=== PATIENT | female | born 1950 | race Caucasian/White ===

== ENCOUNTER 2017-02-06 02:20 | Observation (INO) | payer OTHER, MEDICAID ==
[~2017-02-06] VITALS: Ht 160 cm; Wt 81.6 kg
[2017-02-06 04:08] LABS: Basophils # (auto) 0.1 uL; Basophils % (auto) 0.7 % (0.0-2.0); Eosinophils # (auto) 0.3 uL; Eosinophils % (auto) 2.7 % (0.0-7.0); Hematocrit 42.1 % (36.0-46.0); Hemoglobin 14.3 g/dL (12.2-16.2); Lymphocytes # (auto) 2.8 uL; Lymphocytes % (auto) 28.5 % (10.0-50.0); Mean Corpuscular Hemoglobin 30.3 pg (28.0-32.0); Mean Corpuscular Hgb Conc. 33.9 g/dL (32.0-36.0); Mean Corpuscular Volume 89.4 fL (80.0-100.0); Mean Platelet Volume 8.9 fL (7.4-10.4); Monocytes # (auto) 0.7 uL; Monocytes % (auto) 6.9 % (0.0-12.0); Neutrophils # (auto) 5.9 uL; Neutrophils % (auto) 61.2 % (37.0-80.0); Platelet Count (auto) 433 10^3/uL (140-450); Red Cell Distribution Width 12.7 % (11.6-16.0); White Blood Cell 9.7 10^3/uL (4.4-10.8)
[2017-02-06 04:55] LABS: Albumin 3.8 g/dL (3.4-5.0); Alkaline Phosphatase 67 U/L (45-117); Anion Gap 8 (5-15); Aspartate Aminotransferase 11 U/L (15-37); BUN/Creatinine Ratio 18.2; Bilirubin, Total 0.4 mg/dL (0.2-1.0); Blood Urea Nitrogen 12 mg/dL (7-18); Calcium 8.8 mg/dL (8.5-10.1); Carbon Dioxide 28 mmol/L (21-32); Chloride 106 mmol/L (98-107); GFR African American 115 mL/min; GFR Non-African American 95 mL/min; Glucose 214 mg/dL (74-106); Sodium 142 mmol/L (136-145)
[2017-02-06 06:41] LABS: Urine Bilirubin Negative (Negative); Urine Color Yellow (Yellow); Urine Glucose TRACE mg/dL (Normal); Urine Ketone Negative (Negative); Urine Nitrite Negative (Negative); Urine RBC 4 /hpf (0 - 4); Urine Squamous Epithelial Cell MOD /hpf (<5); Urine Urobilinogen Normal (Negative)
[2017-02-06 06:46] LABS: Urine Blood 1+ /uL (Negative)
[2017-02-06] MEDS ORDERED: SODIUM CHLORIDE 0.9% 1,000 ML IV ONE (07:16)
[2017-02-06] MEDS ORDERED: ASPirin 81 mg TAB PO ONE (07:30)
[2017-02-06] MEDS ORDERED: cefTRIAXone 1GM/50ML D5W 50 ML IV ONE (07:45)
[2017-02-06 07:56] LABS: INR 0.94 (0.9-1.15); Partial Thromboplastin Time 24.7 sec (22.64-33.71); Prothrombin Time 10.2 sec (9.37-12.3)
[2017-02-06 09:45] VITALS: BP 125/70
== END 2017-02-06 10:34 | disposition home or self-care (01) | DRG 392 ==
LOC: ER 02:20 → OVERFLOW 07:17 → ER 10:34
PROVIDERS: ADMIT Emergency Medicine; ATTEND Emergency Medicine
DX: R10.13 Epigastric pain (principal); N39.0 Urinary tract infection, site not specified; E11.65 Type 2 diabetes mellitus with hyperglycemia; E03.9 Hypothyroidism, unspecified; F41.9 Anxiety disorder, unspecified; Z79.82 Long term (current) use of aspirin
CPT/HCPCS: 36415; 71020; 80053; 81001; 83735; 84443; 84484; 85025; 85610; 85730; 96361; 96365; 99285; G0378; J0696; J7030

== ENCOUNTER 2019-08-04 15:20 | Emergency (ER) | payer OTHER ==
[~2019-08-04] VITALS: Ht 157.5 cm; Wt 90.7 kg
[2019-08-04 15:33] VITALS: BP 167/71
[2019-08-04 15:55] LABS: Urine Bacteria FEW /hpf (None Seen); Urine Blood Negative /uL (Negative); Urine Specific Gravity 1.017 (1.001-1.035); Urine WBC 14 /hpf (0 - 5)
[2019-08-04 16:13] LABS: Basophils # (auto) 0.1 uL; Eosinophils # (auto) 0.3 uL; Eosinophils % (auto) 2.9 % (0.0-7.0); Hematocrit 38.2 % (36.0-46.0); Hemoglobin 13.2 g/dL (12.2-16.2); Lymphocytes % (auto) 30.5 % (10.0-50.0); Mean Corpuscular Hgb Conc. 34.4 g/dL (32.0-36.0); Mean Corpuscular Volume 89.9 fL (80.0-100.0); Monocytes # (auto) 0.5 uL; Monocytes % (auto) 5.5 % (0.0-12.0); Neutrophils % (auto) 60.1 % (37.0-80.0); Nucleated Red Blood Cells % 0.2 %; Platelet Count (auto) 389 10^3/uL (140-450); Red Blood Cells 4.26 10^6/uL (4.0-5.20); Red Cell Distribution Width 13.2 % (11.8-14.3)
[2019-08-04 16:29] LABS: Alanine Aminotransferase 24 U/L (13-56); Albumin 3.8 g/dL (3.4-5.0); Anion Gap 6 (5-15); Blood Urea Nitrogen 14 mg/dL (7-18); Calcium 8.8 mg/dL (8.5-10.1); Carbon Dioxide 26 mmol/L (21-32); Chloride 109 mmol/L (98-107); Glucose 202 mg/dL (74-106); Magnesium 2.1 mg/dL (1.6-2.6); Potassium 3.9 mmol/L (3.5-5.1); Sodium 141 mmol/L (136-145)
[2019-08-04 16:34] LABS: Alkaline Phosphatase 74 U/L (45-117); Aspartate Aminotransferase 17 U/L (15-37); BUN/Creatinine Ratio 18.4; Bilirubin, Total 0.3 mg/dL (0.2-1.0); GFR African American 97 mL/min; GFR Non-African American 80 mL/min
== END 2019-08-04 21:32 | disposition left against medical advice (07) ==
LOC: MERGE 15:34 → ER 15:34
DX: R06.02 Shortness of breath (principal); Z53.21 Procedure and treatment not carried out due to patient leaving prior to being seen by health care provider
CPT/HCPCS: 36415; 71046; 80053; 81001; 83735; 83880; 84484; 85025; 93005

== ENCOUNTER 2019-09-19 10:37 | Inpatient (IN) | payer OTHER ==
[~2019-09-19] VITALS: Ht 162.6 cm; Wt 98.2 kg
[2019-09-19] VITALS (7 sets, daily range): BP systolic 98–167; BP diastolic 60–101
[2019-09-19] MEDS ORDERED: SODIUM CHLORIDE 0.9% 1,000 ML IVB ONE (11:16)
[2019-09-19 11:34] LABS: Hematocrit 50.7 % (36.0-46.0); Hemoglobin 17.3 g/dL (12.2-16.2); Mean Corpuscular Hemoglobin 31.2 pg (28.0-32.0); Mean Corpuscular Volume 91.7 fL (80.0-100.0); Platelet Count (auto) 506 10^3/uL (140-450); Red Blood Cells 5.54 10^6/uL (4.0-5.20); White Blood Cell 24.2 10^3/uL (4.4-10.8)
[2019-09-19 11:36] LABS: Basophils % (manual) 0 (0.0-2.0); Blast Cells 0; Eosinophils % (manual) 0 (0-7); Metamyelocytes % 0; Monocytes % (manual) 0 (0-12); Myelocytes % 0; Promyelocytes % 0; Reactive Lymphocytes 0
[2019-09-19] MEDS: PROMETHAZINE HCL 25 MG/ML 1ML IV PRN (11:43)
[2019-09-19 11:51] LABS: Potassium 4.2 mmol/L (3.5-5.1)
[2019-09-19 11:58] LABS: Albumin 3.2 g/dL (3.4-5.0); BUN/Creatinine Ratio 28.3; Bilirubin, Total 1.4 mg/dL (0.2-1.0); Calcium 8.1 mg/dL (8.5-10.1); Total Protein 7.7 g/dL (6.4-8.2)
[2019-09-19 12:13] LABS: Band Neutrophils % (manual) 19; Lymphocytes % (manual) 5 (10.0-50.0)
[2019-09-19] MEDS ORDERED: DEXTROSE (50%) 50ML SYRG IV PRN (12:15)
[2019-09-19] MEDS: SODIUM CHLORIDE 0.9% 1,000 ML IV SCH ×4 (12:34→22:16)
[2019-09-19] MEDS: InsuLIN R (HUMAN) 100 UNITS in SODIUM CHL 0.9% 99 ML IV SCH (12:52)
[2019-09-19] MEDS ORDERED: MORPHINE SULF INJ 2 MG/ML SYRINGE 1ML IV PRN (13:15)
[2019-09-19] MEDS ORDERED: SODIUM CHLORIDE 0.9% 1,000 ML IV ONE (13:15)
[2019-09-19] MEDS ORDERED: NITROGLYCERIN 0.4 MG SL TAB SL PRN (13:15)
[2019-09-19] MEDS ORDERED: LEVOFLOXACIN 750MG 150 ML IV ONE (13:30)
[2019-09-19] MEDS: HYDROmorphone HCL 2 MG/ML VL IV PRN ×2 (14:14→20:39)
[2019-09-19] MEDS: ACCU-CHEK COMFORT CURVE STRIP VI SCH ×6 (15:16→22:21)
[2019-09-19] MEDS: metroNIDAZOLE 500MG/100ML 100 ML IV SCH ×2 (15:23→22:16)
[2019-09-19] MEDS: LACTATED RINGER'S 1,000 ML IV SCH ×2 (15:27→20:37)
[2019-09-19] MEDS ORDERED: SODIUM CHLORIDE 0.9% 1,000 ML IV SCH (16:08)
--- NOTE | 2019-09-19 17:20 | NUR ---
REPORT Received report from Kaylie SALDIVAR in ER, awaiting for patient to arrive into room 111.
[2019-09-19 17:28] LABS: INR 1.15 (0.9-1.15)
--- NOTE | 2019-09-19 17:35 | NUR ---
RECEIVED PATIENT Received patient from ER in [facility] on portable selling manager and oxygen at 2 liters. Patient alert and oriented X 3, able to follow simple commands, speech clear/appropriate. Abdomen soft, tender to the the touch, distended with bowel sounds present in all quadrants and last bowel movement unknown. Maguire catheter draining to gravity clear yellow urine. Skin intact. No SCD's on. IV to the left AC 20g and left wrist 20g: good blood return and flushes easily infusing LR at 125ml/hr and insulin gtt at 4ml/hr. Will continue to monitor patient closely.
--- NOTE | 2019-09-19 18:00 | NUR ---
ULTRASOUND central supply technician supervisor at bedside to obtain study.
--- NOTE | 2019-09-19 18:25 | NUR ---
PICC LINE PICC line nurse Enio at bedside to insert PICC line per MD orders.
[2019-09-19] MEDS ORDERED: LIDOCAINE 1% (LOCAL ANESTH.) PF 5ml SDV ID ONE (19:00)
--- NOTE | 2019-09-19 19:06 | NUR ---
PICC line placement Patient/Patient significant other educated on need for PICC line placement. All risks and benefits explained and all questions and concerns addressed prior to procedure. Noted past medical history and allergies with no contraindications. INR and Plt counts within acceptable range. 5 FR PICC line inserted via RIGHT BASILIC vein using [employer] US and Tip Location System. Sterile technique with maximum barrier precautions utilized. Blood return obtained from each of 3 lumens and each flushed easily with NS using proper technique. PICC secured with Stat-lock; biodisc and occlusive dressing applied. Stat portable chest x-ray obtained for PICC tip placement. *Baseline Arm Circumference 35CM. PICC lot #[id number]. INTERNAL LENGTH 43CM EXTERNAL LENGTH 0CM
--- NOTE | 2019-09-19 19:30 | NUR ---
REPORT RECEIVED, ASSUMED CARE.
--- NOTE | 2019-09-19 20:05 | NUR ---
FAMILY @ BEDSIDE: EXPLAINED POC TO BOTH PT AND FAMILY. PT CONFUSED, FAMILY RESPONDED WITH UNDERSTANDING AND COMPLIANCE. ALL QUESTIONS AND CONCERNS ADDRESSED.
[2019-09-19] MEDS ORDERED: METF-370 PO (20:14)
[2019-09-19] MEDS ORDERED: VITA400C7 PO (20:28)
[2019-09-19] MEDS ORDERED: FURO20TA3 PO (20:28)
[2019-09-19] MEDS ORDERED: [UNRECOGNIZED DRUG - CODE] OR (20:28)
[2019-09-19] MEDS ORDERED: [UNRECOGNIZED DRUG - CODE] PO (20:28)
[2019-09-19] MEDS ORDERED: OMEG300C7 OR (20:28)
[2019-09-19] MEDS ORDERED: GEMF600T7 PO (20:28)
[2019-09-19] MEDS ORDERED: GLIP10TA9 PO (20:28)
[2019-09-19] MEDS ORDERED: MIRA25TA OR (20:28)
[2019-09-19] MEDS ORDERED: AZIT250T7 PO (20:28)
[2019-09-19] MEDS ORDERED: MULT-228 PO (20:28)
[2019-09-19] MEDS ORDERED: CALC667C PO (20:28)
[2019-09-19] MEDS ORDERED: ASPI81CH43 PO (20:28)
[2019-09-19] MEDS: SODIUM CHLOR 0.9% PF (SALINE LOCK) 10ML VIAL/SYR IV SCH (22:16)
[2019-09-20] VITALS (22 sets, daily range): BP systolic 126–182; BP diastolic 53–92
[2019-09-20] MEDS: ACCU-CHEK COMFORT CURVE STRIP VI SCH ×11 (00:52→20:04)
[2019-09-20] MEDS: LACTATED RINGER'S 1,000 ML IV SCH ×3 (02:17→22:01)
[2019-09-20] MEDS: SODIUM CHLORIDE 0.9% 1,000 ML IV SCH (03:13)
--- NOTE | 2019-09-20 03:14 | NUR ---
PT BP 192/81 REPOSITIONED CUFF AND CHECKED TWICE. PLACE PAGE OUT FOR HOSPITALIST. AWAIT CALLBACK
--- NOTE | 2019-09-20 03:15 | NUR ---
PT DENYING ANY PAIN AT THIS TIME, BUT PT APPEARS TO BE IN A LOT OF PAIN.
--- NOTE | 2019-09-20 03:23 | NUR ---
CALLBACK, GAVE UPDATE AND OBTAINED NEW ORDERS. WILL CONT TO MONITOR AND GIVE IN REPORT.
[2019-09-20] MEDS ORDERED: LABETALOL HCL 5 MG/ML ML 20ML VIAL IV ONE (03:30)
[2019-09-20 05:08] LABS: Basophils # (auto) 0 uL; Basophils % (auto) 0.1 % (0.0-2.0); Eosinophils # (auto) 0 uL; Hematocrit 38.5 % (36.0-46.0); Hemoglobin 13.3 g/dL (12.2-16.2); Lymphocytes % (auto) 6.2 % (10.0-50.0); Mean Corpuscular Hemoglobin 31.4 pg (28.0-32.0); Mean Corpuscular Hgb Conc. 34.5 g/dL (32.0-36.0); Monocytes # (auto) 0.7 uL; Monocytes % (auto) 4.3 % (0.0-12.0); Neutrophils % (auto) 89.4 % (37.0-80.0); Platelet Count (auto) 332 10^3/uL (140-450); Red Blood Cells 4.23 10^6/uL (4.0-5.20); Red Cell Distribution Width 12.8 % (11.8-14.3); White Blood Cell 15.7 10^3/uL (4.4-10.8)
[2019-09-20 05:15] LABS: INR 1.12 (0.9-1.15); Partial Thromboplastin Time 27.9 sec (23.64-32.05)
--- NOTE | 2019-09-20 05:16 | NUR ---
PT HAD SM SMEAR BM: Patient bathe/linen change Patient given partial bath. Skin integrity assessed for any changes. Linens changed. Patient repositioned for comfort.
[2019-09-20] MEDS: metroNIDAZOLE 500MG/100ML 100 ML IV SCH ×3 (05:34→22:01)
[2019-09-20 05:45] LABS: Calcium 7.6 mg/dL (8.5-10.1); Potassium 3.6 mmol/L (3.5-5.1)
[2019-09-20 05:51] LABS: BUN/Creatinine Ratio 54.5
--- NOTE | 2019-09-20 05:51 | NUR ---
FAMILY CALLED GAVE THEM UPDATE.
--- NOTE | 2019-09-20 05:54 | NUR ---
CALLED LAB REGARDING NO CHEMISTRY RESULTS, STILL PENDING.
[2019-09-20] MEDS: HYDROmorphone HCL 2 MG/ML VL IV PRN ×2 (06:55→21:54)
--- NOTE | 2019-09-20 08:00 | NUR ---
OPENING NOTE Received patient in bed resting with eyes closed easily arousable to verbal stimuli. Patient alert and oriented X 3, able to follow simple commands, speech clear/appropriate. Nasal cannula at 2 liters sating in the high 90's, lungs clear. Abdomen soft, tender to the the touch, distended with bowel sounds present in all quadrants and last bowel 09/20/2019 per NOC nurse Jarad . Maguire catheter draining to gravity clear yellow urine. Skin intact. No SCD's on. IV to the left AC 20g and left wrist 20g: good blood return and flushes easily. PICC line to the right upper arm(TLC) infusing LR at 125ml/hr and insulin gtt at 3ml/hr. Will continue to monitor patient closely.
[2019-09-20] MEDS: InsuLIN R (HUMAN) 100 UNITS in SODIUM CHL 0.9% 99 ML IV SCH (08:35)
[2019-09-20] MEDS: LEVOFLOXACIN 750MG 150 ML IV SCH (10:12)
[2019-09-20] MEDS: SODIUM CHLOR 0.9% PF (SALINE LOCK) 10ML VIAL/SYR IV SCH ×2 (10:12→22:53)
[2019-09-20] MEDS ORDERED: hydrALAZINE HCL 20 MG/ML VL IV PRN (10:30)
--- NOTE | 2019-09-20 10:35 | NUR ---
MD Dr. Simpson at bedside updated on patient condition with new orders, MD to input into system. MD spoke to patient and patients , son and daughter, whom are at bedside, regarding plan of care and questions/concerns answered by MD. Will continue to monitor patient and carry out orders.
[2019-09-20] MEDS ORDERED: DEXTROSE (50%) 50ML SYRG IV PRN (11:15)
[2019-09-20] MEDS: InsuLIN REG 1unit/0.01ml Soln (100units/ml) SC SCH ×3 (12:11→20:05)
--- NOTE | 2019-09-20 12:30 | NUR ---
ELIMINATION Patient requested to use bedpan, was unable to have bowel movement just passed gas per patient.
--- NOTE | 2019-09-20 17:30 | NUR ---
ELIMINATION Patient requested to use bedpan, patient was unable to have a bowel movement but is passing gas per patient. Will continue to monitor patient closely. Addendum: 09/20/19 at 1808 by RIKA SARAVIA RN Complete linen change done at this time.
--- NOTE | 2019-09-20 18:05 | NUR ---
ACTIVITY Patient requested to sit on the edge of the bed to dangle feet with son and at bedside. Patient tolerated well. Will continue to monitor patient.
--- NOTE | 2019-09-20 19:45 | NUR ---
Opening Shift Note Assumed care of patient, awake and alert, lying on bed with mild restless. Pt refused pain. Pt c/o hot and ask for a wet cold towel to wipe her face. Fan opened, wet towel provided. Pt removed O2 NC by self. Breathing on room air, even and nonlabored, No S/S of distress/SOB, will monitor POX and resume O2 if low. Right upper PICC line in place, CDI site, flushed well. Saline lock 20G at left hand, CDI site, flushed well. Maguire's catheter hung to gravity with clear light wisam urine. Bed in low position, call light within reach, all alarms are audible, fall and safety precaution in place. SCD connected to the machine after explained the benefit. Pt cooperated. Instructed on POC and to call for assist PRN, will continue to monitor for changes Q1hr and PRN.
--- NOTE | 2019-09-20 23:15 | NUR ---
Elimination Pt incontinence. Pt passed a small amount of pasty dark brown stool. Perirectal cleaned, linen changed. Skin assessed, no new changes, sacrum intact. Pt able to turn well, tolerated well. Continue care.
[2019-09-21] VITALS (14 sets, daily range): BP systolic 115–153; BP diastolic 44–70
--- NOTE | 2019-09-21 00:10 | NUR ---
Condition update Pt slept well after Dilaudid given. Pain controlled. POX low while sleeping, high80's%. Put Pt on O2NC 1LPM, breathing even and nonlabored. Continue care.
[2019-09-21] MEDS: ACCU-CHEK COMFORT CURVE STRIP VI SCH ×7 (00:13→23:09)
[2019-09-21] MEDS: InsuLIN REG 1unit/0.01ml Soln (100units/ml) SC SCH ×7 (00:13→23:09)
[2019-09-21] MEDS ORDERED: HALOPERIDOL LACTATE 5 MG/ML INJ VIAL IM ONE (00:15)
--- NOTE | 2019-09-21 01:30 | NUR ---
Elimination Pt asked to use a bedpan. Pt unable to pass BM for now. Continue care.
[2019-09-21] MEDS: HYDROmorphone HCL 2 MG/ML VL IV PRN ×4 (02:38→20:52)
--- NOTE | 2019-09-21 02:39 | NUR ---
REPORTS 8/10 ABDOMINAL PAIN - DILAUDID PRN GIVEN
[2019-09-21 03:43] LABS: Basophils # (auto) 0.1 uL; Basophils % (auto) 0.4 % (0.0-2.0); Eosinophils # (auto) 0 uL; Eosinophils % (auto) 0.1 % (0.0-7.0); Hematocrit 33.3 % (36.0-46.0); Hemoglobin 11.5 g/dL (12.2-16.2); Mean Corpuscular Hemoglobin 31.3 pg (28.0-32.0); Mean Corpuscular Hgb Conc. 34.7 g/dL (32.0-36.0); Monocytes # (auto) 0.7 uL; Monocytes % (auto) 4.4 % (0.0-12.0); Neutrophils % (auto) 88.1 % (37.0-80.0); Platelet Count (auto) 327 10^3/uL (140-450); Red Blood Cells 3.69 10^6/uL (4.0-5.20); Red Cell Distribution Width 12.6 % (11.8-14.3); White Blood Cell 14.8 10^3/uL (4.4-10.8)
[2019-09-21 03:59] LABS: INR 1.11 (0.9-1.15); Partial Thromboplastin Time 29.4 sec (23.64-32.05)
[2019-09-21 04:05] LABS: Albumin 2.2 g/dL (3.4-5.0); Calcium 7.4 mg/dL (8.5-10.1); Magnesium 2.4 mg/dL (1.6-2.6); Potassium 3.4 mmol/L (3.5-5.1)
[2019-09-21 04:07] LABS: BUN/Creatinine Ratio 36.1
[2019-09-21 04:10] LABS: Bilirubin, Total 0.9 mg/dL (0.2-1.0); Total Protein 6.2 g/dL (6.4-8.2)
[2019-09-21 04:16] LABS: Cholesterol 112.8 mg/dL (< 200)
--- NOTE | 2019-09-21 04:30 | NUR ---
Condition update Pt slept well after pain med given. VSS. Continue care.
[2019-09-21] MEDS: metroNIDAZOLE 500MG/100ML 100 ML IV SCH ×3 (06:18→21:32)
[2019-09-21] MEDS: LACTATED RINGER'S 1,000 ML IV SCH ×2 (08:10→16:31)
--- NOTE | 2019-09-21 09:00 | NUR ---
DR. ESCALANTE HERE TO SEE PATIENT. SEE MD NOTES AND EMR FOR ANY NEW ORDERS.
[2019-09-21] MEDS: SODIUM CHLOR 0.9% PF (SALINE LOCK) 10ML VIAL/SYR IV SCH ×2 (10:03→21:32)
[2019-09-21] MEDS: LEVOFLOXACIN 750MG 150 ML IV SCH (10:04)
[2019-09-21] MEDS: PROMETHAZINE HCL 25 MG/ML 1ML IV PRN (11:23)
--- NOTE | 2019-09-21 12:03 | NUR ---
NUTRITION ASSESSMENT NOTES Please refer to link notes of nutrition screen form filed under the intervention section of the plan of care for further details. Est. Needs: 1300 kcal to 1750 kcal (15-20 kcal/kgBW), 70 gms to 88 gms pro (0.8-1.0 gms/kgBW). Will continue to monitor pertinent labs and reassess nutrient need prn Thank you. Addendum: 09/21/19 at [address] Amended: Links added.
--- NOTE | 2019-09-21 15:10 | NUR ---
DR. DIAS HERE TO SEE PATIENT. SEE MD NOTES AND EMR FOR ANY NEW ORDERS.
--- NOTE | 2019-09-21 15:15 | NUR ---
DR. HIGGINS HERE TO SEE PATIENT. SEE MD NOTES AND EMR FOR ANY NEW ORDERS.
[2019-09-21] MEDS ORDERED: POTASSIUM CHL 20 Meq TABLET PO ONE (15:45)
--- NOTE | 2019-09-21 15:59 | NUR ---
ECHO BEING DONE AT THIS TIME.
[2019-09-21] MEDS ORDERED: METOPROLOL TARTRATE 25 MG TAB PO ONE (18:15)
--- NOTE | 2019-09-21 19:27 | NUR ---
ROUNDED: SLEEPING, EVEN AND UNLABORED BREATHING. VSS. WILL CONT CARE. BED ALARM ON
[2019-09-21] MEDS: ONDANSETRON HCL 4 MG/2 ML VIAL IV PRN (20:07)
--- NOTE | 2019-09-21 20:17 | NUR ---
NAUSEATED - ZOFRAN PRN GIVEN
--- NOTE | 2019-09-21 20:25 | NUR ---
OPENING NOTE: SLEEPY, BUT EASILY AROUSABLE. ORIENTED X3. REPORTS FEELING UNWELL, FEELS UNCOMFORTABLE AND NAUSEATED. NO PAIN BEHAVIORS IDENTIFIED. NSR WITH PAC, HR 70-80s. SBP 130s. LS CTA, EVEN AND UNLABORED BREATHING. PLACED ON 2L NC WHILE ASLEEP. SpO2> 95%. ABD ROUND BUT SOFT. TENDER. + FLATUS. LBM TODAY. BRICE PATENT AND INTACT, DRAINING YELLOW URINE WITH SEDIMENT. SKIN GROSSLY INTACT, SEE SKIN AND WOUND FLOWSHEET FOR ASSESSMENT. RIGHT UPPER ARM PICC, CDI, PATENT WITH BLOOD RETURN. 20 G PIV TO LEFT HAND, CDI, PATENT WITH BLOOD RETURN. REINFORCED POC. MAINTAINED PATIENT SAFETY: BED LOCKED AND IN THE LOWEST POSITION, BED ALARM ON. FREQUENT VISUAL CHECKS. WILL CONT CARE
--- NOTE | 2019-09-21 20:53 | NUR ---
ABDOMINAL PAIN 8/ - DILAUDID PRN GIVEN
--- NOTE | 2019-09-21 21:02 | NUR ---
FAMILY AT BEDSIDE
[2019-09-21] MEDS: METOPROLOL TARTRATE 25 MG TAB PO SCH (21:06)
--- NOTE | 2019-09-21 21:08 | NUR ---
SCHEDULED 2200 METOPROLOL HELD D/T FIRST DOSE GIVEN AT 1830
--- NOTE | 2019-09-21 21:30 | NUR ---
ROUNDED/PAIN REASSESSMENT: SLEEPING. NO PAIN BEHAVIORS IDENTIFIED. EVEN AND UNLABORED BREATHING.
--- NOTE | 2019-09-21 22:27 | NUR ---
ROUNDED: SLEEPING. EVEN AND UNLABORED BREATHING. VSS OTHERWISE. WILL CONT CARE
--- NOTE | 2019-09-21 23:09 | NUR ---
ROUNDED: REPORTS NAUSEA RESOLVED BUT PAIN LINGERING, NO PAIN BEHAVIORS IDENTIFIED. REPORTS PAIN IS TOLERABLE UNTIL NEXT TIME PAIN MEDICATION PRN IS AVAILABLE
[2019-09-22] VITALS (9 sets, daily range): BP systolic 101–142; BP diastolic 36–64
--- NOTE | 2019-09-22 00:43 | NUR ---
ROUNDED: SLEEPING. EVEN AND UNLABORED BREATHING. VSS. WILL CONT CARE
--- NOTE | 2019-09-22 01:14 | NUR ---
ROUNDED: NC OUT OF PLACE. REPLACED. PATIENT DENIES PAIN AND NAUSEA AT THIS TIME. WILL CONT CARE
[2019-09-22] MEDS: HYDROmorphone HCL 2 MG/ML VL IV PRN ×3 (02:13→19:00)
[2019-09-22] MEDS: ONDANSETRON HCL 4 MG/2 ML VIAL IV PRN ×3 (02:14→19:00)
--- NOTE | 2019-09-22 03:30 | NUR ---
REPORT CALLED TO YARIEL GASPAR
[2019-09-22] MEDS: ACCU-CHEK COMFORT CURVE STRIP VI SCH ×3 (03:48→20:00)
[2019-09-22] MEDS: InsuLIN REG 1unit/0.01ml Soln (100units/ml) SC SCH ×4 (03:48→19:57)
--- NOTE | 2019-09-22 04:18 | NUR ---
TRANSFERRED TO 294 A WITHOUT COMPLICATIONS
[2019-09-22 04:37] LABS: Potassium 3.6 mmol/L (3.5-5.1)
[2019-09-22] MEDS: LACTATED RINGER'S 1,000 ML IV SCH ×2 (04:39→19:56)
[2019-09-22 04:42] LABS: Albumin 1.9 g/dL (3.4-5.0); BUN/Creatinine Ratio 39.5; Calcium 7.6 mg/dL (8.5-10.1); Magnesium 2.2 mg/dL (1.6-2.6)
[2019-09-22 04:43] LABS: Hemoglobin 11.3 g/dL (12.2-16.2); Mean Corpuscular Hemoglobin 30.9 pg (28.0-32.0); Mean Corpuscular Hgb Conc. 34.3 g/dL (32.0-36.0); Platelet Count (auto) 327 10^3/uL (140-450); Red Blood Cells 3.67 10^6/uL (4.0-5.20); Red Cell Distribution Width 12.7 % (11.8-14.3); White Blood Cell 16.4 10^3/uL (4.4-10.8)
[2019-09-22 04:45] LABS: Basophils % (manual) 0 (0.0-2.0); Bilirubin, Total 0.6 mg/dL (0.2-1.0); Blast Cells 0; Eosinophils % (manual) 0 (0-7); Metamyelocytes % 0; Myelocytes % 0; Promyelocytes % 0; Reactive Lymphocytes 0; Total Protein 5.8 g/dL (6.4-8.2)
[2019-09-22] MEDS: metroNIDAZOLE 500MG/100ML 100 ML IV SCH ×3 (05:36→21:52)
[2019-09-22 06:16] LABS: Band Neutrophils % (manual) 1; Lymphocytes % (manual) 8 (10.0-50.0); Monocytes % (manual) 5 (0-12)
--- NOTE | 2019-09-22 09:45 | NUR ---
HAS LIQUID BM. PARTIAL BATH AND COMPLETE LINEN CHANGE. FAMILY MEMBERS THEN GIVE TREATMENT TO HAIR.
[2019-09-22] MEDS: METOPROLOL TARTRATE 25 MG TAB PO SCH ×2 (10:14→21:54)
[2019-09-22] MEDS: LEVOFLOXACIN 750MG 150 ML IV SCH (10:14)
--- NOTE | 2019-09-22 10:50 | NUR ---
DR. SPENCER SEES PT. EXPLAINED PLANS. TEACHING RE: COMPLIANCE WITH DIET TO PREVENT IRRITATING PANCREASE AND KEEP BLOOD SUGARS IN CHECK. TO F/U OUT PT FOR CARDIAC CLEARANCE FOR PLANNED GALL BLADDER SX. MEDICATED FOR PAIN AND NAUSEA. MULTIPLE FAMILY MEMBERS VISIT.
--- NOTE | 2019-09-22 13:22 | NUR ---
NOW SLEEPING DEEPLY. PER PT REQUEST CURTAIN DRAWN WITH NOTE ATTACHED ASKING NOT TO BE DISTURBED.
[2019-09-22] MEDS: SODIUM CHLOR 0.9% PF (SALINE LOCK) 10ML VIAL/SYR IV SCH (22:00)
[2019-09-23] MEDS: ACCU-CHEK COMFORT CURVE STRIP VI SCH ×6 (00:15→12:12)
[2019-09-23] MEDS: InsuLIN REG 1unit/0.01ml Soln (100units/ml) SC SCH ×4 (00:15→12:13)
[2019-09-23] MEDS: HYDROmorphone HCL 2 MG/ML VL IV PRN (00:15)
[2019-09-23] MEDS: ONDANSETRON HCL 4 MG/2 ML VIAL IV PRN (00:16)
[2019-09-23] MEDS: metroNIDAZOLE 500MG/100ML 100 ML IV SCH ×2 (05:46→14:00)
[2019-09-23 05:50] VITALS: BP 101/54
--- NOTE | 2019-09-23 07:55 | NUR ---
Opening Shift Note Assumed care of patient, awake and alert. No S/S of distress/SOB or pain noted/reported. NA assisting with shower. Family at bedside. Patient instructed on POC and to call for assistance PRN, will continue to monitor for changes Q1hr and PRN. Signed: 09/23/19 at 1123 by RENATO YOUNG SN <Co-Signature Required> Co-Signed: 09/23/19 at 1123 by Fang Tong RN
[2019-09-23 08:02] LABS: Hematocrit 31.7 % (36.0-46.0); Mean Corpuscular Hemoglobin 31.2 pg (28.0-32.0); Mean Corpuscular Hgb Conc. 34.8 g/dL (32.0-36.0); Mean Corpuscular Volume 89.8 fL (80.0-100.0); Platelet Count (auto) 340 10^3/uL (140-450); Red Blood Cells 3.53 10^6/uL (4.0-5.20); Red Cell Distribution Width 12.4 % (11.8-14.3); White Blood Cell 19.2 10^3/uL (4.4-10.8)
[2019-09-23 08:09] LABS: Basophils % (manual) 0 (0.0-2.0); Blast Cells 0; Eosinophils % (manual) 0 (0-7); Myelocytes % 0; Promyelocytes % 0; Reactive Lymphocytes 0
[2019-09-23 08:16] LABS: BUN/Creatinine Ratio 27.9; Calcium 7.4 mg/dL (8.5-10.1); Potassium 3.1 mmol/L (3.5-5.1)
[2019-09-23 08:48] LABS: Band Neutrophils % (manual) 11; Lymphocytes % (manual) 15 (10.0-50.0); Metamyelocytes % 2; Monocytes % (manual) 4 (0-12)
[2019-09-23 09:00] VITALS: BP 122/68
[2019-09-23] MEDS: LEVOFLOXACIN 750MG 150 ML IV SCH (09:13)
[2019-09-23] MEDS: LACTATED RINGER'S 1,000 ML IV SCH (09:16)
[2019-09-23] MEDS: METOPROLOL TARTRATE 25 MG TAB PO SCH (09:16)
[2019-09-23] MEDS: SODIUM CHLOR 0.9% PF (SALINE LOCK) 10ML VIAL/SYR IV SCH (10:00)
--- NOTE | 2019-09-23 10:50 | NUR ---
BM PATIENT HAD A BOWEL MOVEMENT, PATIENT STATES " I CANT FEEL IT COME OUT, IT JUST COMES OUT", CLEANSED BUTTOCKS WITH WARM WATER AND MILD SOAP AND PATTED DRY WITH WASHCLOTHS. CHANGED BED LINEN AND PROVIDED A NEW GOWN FOR PATIENT, WITH THE HELP OF YOBANI STUDENT NURSE. PATIENT TOLERATED WELL.
[2019-09-23] MEDS ORDERED: POTASSIUM CHL 20 Meq TABLET PO ONE (11:45)
[2019-09-23 12:47] VITALS: BP 123/60
--- NOTE | 2019-09-23 14:10 | NUR ---
Discharge instructions given as ordered. Encourage to follow up with PMD as instructed. All questions and concerns addressed. Patient verbalized understanding. Medication reconciliation form completed and copy given to patient. Home medications held in Pharmacy returned to patient. IV removed with catheter intact, pressure dressing applied. Telemetry unit returned to ICU. Patient taken to vehicle via wheelchair with all personal belongings, accompanied by staff and family member. No distress noted at time of departure.
== END 2019-09-23 14:18 | disposition home or self-care (01) | DRG 438 ==
LOC: ER 10:42 → ICU WEST 10:43 → TELE-WESTW 09-22 04:15
PROVIDERS: ADMIT Nurse Practitioner Acute Care; ATTEND Internal Medicine Geriatric Medicine
PROC: 02HV33Z Insertion of Infusion Device into Superior Vena Cava, Percutaneous Approach (ICD-10-PCS; principal; 2019-09-19)
DX: K85.10 Biliary acute pancreatitis without necrosis or infection (principal); N17.0 Acute kidney failure with tubular necrosis; E11.10 Type 2 diabetes mellitus with ketoacidosis without coma; E87.1 Hypo-osmolality and hyponatremia; K80.20 Calculus of gallbladder without cholecystitis without obstruction; E66.01 Morbid (severe) obesity due to excess calories; E78.5 Hyperlipidemia, unspecified; F41.9 Anxiety disorder, unspecified; I48.0 Paroxysmal atrial fibrillation; E78.00 Pure hypercholesterolemia, unspecified; I10 Essential (primary) hypertension; Z79.84 Long term (current) use of oral hypoglycemic drugs; Z82.49 Family history of ischemic heart disease and other diseases of the circulatory system; Z79.82 Long term (current) use of aspirin; Z83.3 Family history of diabetes mellitus
CPT/HCPCS: 36415; 36569; 36600; 71045; 74176; 76705; 80048; 80053; 80061; 82150; 82805; 82962; 83036; 83605; 83690; 83735; 85007; 85025; 85027; 85610; 85730; 87040; 87081; 93005; 93306; 96361; 96365; 96375; G0378; J1815; J1956; J2405; J3490

== ENCOUNTER 2019-09-24 12:58 | Inpatient (IN) | payer OTHER, MEDICAID ==
[~2019-09-24] VITALS: Ht 157.5 cm; Wt 67.3 kg
[~2019-09-24 12:58] MED LIST: ASPI81CH43 PO; AZIT250T7 PO; CALC667C PO; FURO20TA3 PO; GEMF600T7 PO; GLIP10TA9 PO; METF-370 PO; MIRA25TA OR; MULT-228 PO; OMEG300C7 OR; VITA400C7 PO; [UNRECOGNIZED DRUG - CODE] OR; [UNRECOGNIZED DRUG - CODE] PO
[2019-09-24] MEDS ORDERED: SODIUM CHLORIDE 0.9% 1,000 ML IVB ONE (14:15)
[2019-09-24 14:24] LABS: Hematocrit 36.3 % (36.0-46.0); Hemoglobin 12.3 g/dL (12.2-16.2); Mean Corpuscular Hemoglobin 30.5 pg (28.0-32.0); Mean Corpuscular Hgb Conc. 33.8 g/dL (32.0-36.0); Mean Corpuscular Volume 90.4 fL (80.0-100.0); Platelet Count (auto) 442 10^3/uL (140-450); Red Blood Cells 4.02 10^6/uL (4.0-5.20); Red Cell Distribution Width 13.2 % (11.8-14.3); White Blood Cell 23.5 10^3/uL (4.4-10.8)
[2019-09-24 14:52] LABS: Basophils % (manual) 0 (0.0-2.0); Blast Cells 0; Metamyelocytes % 0; Promyelocytes % 0; Reactive Lymphocytes 0
[2019-09-24 14:55] LABS: Albumin 2.1 g/dL (3.4-5.0); Calcium 8.7 mg/dL (8.5-10.1); Potassium 3.9 mmol/L (3.5-5.1)
[2019-09-24 14:58] LABS: BUN/Creatinine Ratio 19.4; Bilirubin, Total 0.5 mg/dL (0.2-1.0); Total Protein 6.4 g/dL (6.4-8.2)
[2019-09-24] MEDS ORDERED: PANTOPRAZOLE 40 MG/10 ML VIAL INJ IV ONE (16:30)
[2019-09-24 17:09] LABS: Band Neutrophils % (manual) 4; Eosinophils % (manual) 1 (0-7); Lymphocytes % (manual) 7 (10.0-50.0); Monocytes % (manual) 4 (0-12); Myelocytes % 1
[2019-09-24] MEDS ORDERED: metroNIDAZOLE 500MG/100ML 100 ML IV ONE ×2 (17:15→23:03)
[2019-09-24] MEDS ORDERED: PIPERACILLIN-TAZOB 3.375GM 100 ML IV ONE (17:15)
[2019-09-24 17:38] LABS: Urine Bacteria NONE SEEN /hpf (None Seen); Urine Blood Negative /uL (Negative); Urine Specific Gravity 1.003 (1.001-1.035); Urine WBC 1 /hpf (0 - 5)
[2019-09-24] MEDS ORDERED: MORPHINE SULF INJ 2 MG/ML SYRINGE 1ML IV PRN (18:15)
[2019-09-24] MEDS ORDERED: DEXTROSE (50%) 50ML SYRG IV PRN (18:15)
[2019-09-24] MEDS ORDERED: NITROGLYCERIN 0.4 MG SL TAB SL PRN (18:15)
[2019-09-24] MEDS: SODIUM CHLORIDE 0.9% 1,000 ML IV SCH (18:19)
[2019-09-24] MEDS: GEMFIBROZIL 600 MG TAB PO SCH (18:45)
--- NOTE | 2019-09-24 20:54 | NUR ---
MS admit from ER HORACE DANIELLE admitted to tele/MS after SBAR received. Patient oriented to YESSENIA SHELL RN primary RN, unit, room, bed, and unit policies regarding patient care and visiting hours. Patient weighed by bedscale and encouraged to call if they need something. All questions and concerns addressed, patient verbalized understanding. Note:
[2019-09-24] MEDS: FLORASTOR (S. BOULARDII) 250 MG CAP PO SCH (21:30)
[2019-09-24] MEDS: ACCU-CHEK COMFORT CURVE STRIP VI SCH (21:30)
[2019-09-24 22:00] VITALS: BP 125/81
[2019-09-24] MEDS: InsuLIN REG 1unit/0.01ml Soln (100units/ml) SC SCH (22:22)
[2019-09-24] MEDS: metroNIDAZOLE 500MG/100ML 100 ML IV SCH (23:04)
--- NOTE | 2019-09-25 00:08 | NUR ---
PATIENT C/O ABDOMINAL PAIN 05/16 REQUESTING PAIN MEDICATION. PAGED HOSPITALIST AWAITING CALLBACK.
[2019-09-25] MEDS ORDERED: HYDROcodone-ACET 7.5/325MG TAB PO ONE (00:45)
[2019-09-25] MEDS ORDERED: HYDROcodone-ACET 7.5/325MG TAB ONE (01:10)
[2019-09-25] MEDS: SODIUM CHLORIDE 0.9% 1,000 ML IV SCH (04:21)
[2019-09-25 05:31] VITALS: BP 125/55
[2019-09-25] MEDS: metroNIDAZOLE 500MG/100ML 100 ML IV SCH ×3 (06:00→22:12)
[2019-09-25] MEDS: InsuLIN REG 1unit/0.01ml Soln (100units/ml) SC SCH ×4 (07:00→22:29)
[2019-09-25] MEDS: GEMFIBROZIL 600 MG TAB PO SCH ×2 (07:04→18:44)
[2019-09-25] MEDS: ACCU-CHEK COMFORT CURVE STRIP VI SCH ×4 (07:12→22:12)
[2019-09-25 08:00] VITALS: BP 108/52
--- NOTE | 2019-09-25 08:10 | NUR ---
OPENING SHIFT NOTE ASSUMED CARE OF PT. NO SOB OR SIGNS OF DISTRESS NOTED. INSTRUCTED ON POC AND TO CALL FOR HELP PRN. BED IN LOWEST POSITION WITH SIDE RAILS UP X2. WILL CONTINUE TO MONITOR.
[2019-09-25] MEDS: FLORASTOR (S. BOULARDII) 250 MG CAP PO SCH ×2 (10:00→22:12)
[2019-09-25] MEDS: PANTOPRAZOLE 40 MG TAB PO SCH (10:37)
[2019-09-25] MEDS: MULTIPLE VITAMIN TAB PO SCH (10:37)
[2019-09-25] MEDS: ASPirin 81 mg TAB PO SCH (10:37)
[2019-09-25] MEDS: ENOXAPARIN SOD 40 MG/0.4 ML SYRINGE SC SCH (10:38)
[2019-09-25 12:00] VITALS: BP 134/58
[2019-09-25] MEDS ORDERED: FUROSEMIDE 40 MG/4 ML VIAL IV ONE (13:45)
--- NOTE | 2019-09-25 15:00 | NUR ---
STOOL SAMPLE COLLECTED AND SENT TO LAB.
[2019-09-25 17:00] VITALS: BP 134/58
[2019-09-25] MEDS: FUROSEMIDE 40 MG/4 ML VIAL IV SCH (18:44)
[2019-09-25 22:10] VITALS: BP 138/76
[2019-09-25 22:41] LABS: BUN/Creatinine Ratio 11.3; Magnesium 1.8 mg/dL (1.6-2.6); Potassium 3.3 mmol/L (3.5-5.1)
[2019-09-26 05:17] VITALS: BP 136/85
[2019-09-26] MEDS: metroNIDAZOLE 500MG/100ML 100 ML IV SCH ×3 (06:03→22:23)
[2019-09-26] MEDS: ACCU-CHEK COMFORT CURVE STRIP VI SCH ×4 (06:03→22:23)
[2019-09-26] MEDS: InsuLIN REG 1unit/0.01ml Soln (100units/ml) SC SCH ×4 (06:03→22:23)
[2019-09-26] MEDS: GEMFIBROZIL 600 MG TAB PO SCH ×2 (06:03→17:18)
[2019-09-26] MEDS: FUROSEMIDE 40 MG/4 ML VIAL IV SCH ×2 (06:04→17:19)
[2019-09-26 07:35] LABS: Basophils # (auto) 0 uL; Basophils % (auto) 0.2 % (0.0-2.0); Eosinophils # (auto) 0.1 uL; Eosinophils % (auto) 0.8 % (0.0-7.0); Hematocrit 31.8 % (36.0-46.0); Hemoglobin 10.6 g/dL (12.2-16.2); Lymphocytes # (auto) 1.8 uL; Lymphocytes % (auto) 11.3 % (10.0-50.0); Mean Corpuscular Hemoglobin 30.7 pg (28.0-32.0); Mean Corpuscular Hgb Conc. 33.3 g/dL (32.0-36.0); Mean Corpuscular Volume 92.3 fL (80.0-100.0); Monocytes % (auto) 6.5 % (0.0-12.0); Neutrophils # (auto) 13.1 uL; Neutrophils % (auto) 81.2 % (37.0-80.0); Platelet Count (auto) 351 10^3/uL (140-450); Red Blood Cells 3.45 10^6/uL (4.0-5.20); Red Cell Distribution Width 13.2 % (11.8-14.3); White Blood Cell 16.1 10^3/uL (4.4-10.8)
[2019-09-26 07:46] LABS: Calcium 7.5 mg/dL (8.5-10.1); Magnesium 1.7 mg/dL (1.6-2.6); Potassium 3.2 mmol/L (3.5-5.1)
[2019-09-26 07:49] LABS: BUN/Creatinine Ratio 9.1
[2019-09-26 09:00] VITALS: BP 111/52
[2019-09-26] MEDS ORDERED: POTASSIUM CHL 20 Meq TABLET PO ONE (09:15)
[2019-09-26] MEDS: MAGNESIUM OXIDE 400 MG TAB PO SCH ×2 (10:49→22:23)
[2019-09-26] MEDS: ASPirin 81 mg TAB PO SCH (10:49)
[2019-09-26] MEDS: ENOXAPARIN SOD 40 MG/0.4 ML SYRINGE SC SCH (10:49)
[2019-09-26] MEDS: FLORASTOR (S. BOULARDII) 250 MG CAP PO SCH ×2 (10:49→22:23)
[2019-09-26] MEDS: MULTIPLE VITAMIN TAB PO SCH (10:49)
[2019-09-26] MEDS: PANTOPRAZOLE 40 MG TAB PO SCH (10:49)
[2019-09-26 13:00] VITALS: BP 113/56
[2019-09-26 18:33] VITALS: BP 110/65
[2019-09-26 18:43] VITALS: BP 112/71
[2019-09-26 21:47] VITALS: BP 135/66
[2019-09-27 03:52] VITALS: BP 132/65
[2019-09-27 06:10] LABS: BUN/Creatinine Ratio 8.3; Calcium 7.6 mg/dL (8.5-10.1); Magnesium 1.7 mg/dL (1.6-2.6); Potassium 3.6 mmol/L (3.5-5.1)
[2019-09-27] MEDS: metroNIDAZOLE 500MG/100ML 100 ML IV SCH ×2 (06:18→14:00)
[2019-09-27] MEDS: InsuLIN REG 1unit/0.01ml Soln (100units/ml) SC SCH ×2 (06:18→11:39)
[2019-09-27] MEDS: GEMFIBROZIL 600 MG TAB PO SCH (06:18)
[2019-09-27] MEDS: ACCU-CHEK COMFORT CURVE STRIP VI SCH ×2 (06:18→11:39)
[2019-09-27] MEDS: FUROSEMIDE 40 MG/4 ML VIAL IV SCH (06:19)
--- NOTE | 2019-09-27 07:25 | NUR ---
opening Note Received report from machinist 2nd shift RN. Patient is awake, alert and oriented. No signs or symptoms of distress noted at this time. Patient denies pain at this time. Patient is on room air, respirations even and unlabored. Reviewed plan of care with patient, patient verbalized understanding. Bed in low and locked position, call light within reach. Will continue to monitor Q1 hour and PRN.
[2019-09-27 08:00] VITALS: BP 123/59
[2019-09-27] MEDS: FLORASTOR (S. BOULARDII) 250 MG CAP PO SCH (09:31)
[2019-09-27] MEDS: MULTIPLE VITAMIN TAB PO SCH (09:31)
[2019-09-27] MEDS: MAGNESIUM OXIDE 400 MG TAB PO SCH (09:31)
[2019-09-27] MEDS: ASPirin 81 mg TAB PO SCH (09:31)
[2019-09-27] MEDS: ENOXAPARIN SOD 40 MG/0.4 ML SYRINGE SC SCH (09:32)
[2019-09-27] MEDS: PANTOPRAZOLE 40 MG TAB PO SCH (09:32)
--- NOTE | 2019-09-27 10:05 | NUR ---
IV insertion IV access obtained, via clean sterile technique by inserting 22 gauge catheter to left wrist. IV secured properly. No trauma to site. Patient tolerated well.
--- NOTE | 2019-09-27 10:10 | NUR ---
IV Removed IV removed with clean sterile technique, catheter fully intact. Pressure dressing applied to site. Patient tolerated well.
[2019-09-27 12:00] VITALS: BP 122/61
[2019-09-27 14:25] LABS: Basophils # (auto) 0.1 uL; Basophils % (auto) 1.2 % (0.0-2.0); Eosinophils # (auto) 0.1 uL; Eosinophils % (auto) 0.7 % (0.0-7.0); Hematocrit 31.2 % (36.0-46.0); Hemoglobin 10.5 g/dL (12.2-16.2); Lymphocytes # (auto) 1.6 uL; Mean Corpuscular Hemoglobin 30.8 pg (28.0-32.0); Mean Corpuscular Hgb Conc. 33.7 g/dL (32.0-36.0); Mean Corpuscular Volume 91.6 fL (80.0-100.0); Monocytes # (auto) 0.8 uL; Monocytes % (auto) 6.3 % (0.0-12.0); Neutrophils # (auto) 9.6 uL; Neutrophils % (auto) 78.8 % (37.0-80.0); Platelet Count (auto) 339 10^3/uL (140-450); Red Blood Cells 3.41 10^6/uL (4.0-5.20); Red Cell Distribution Width 13.2 % (11.8-14.3); White Blood Cell 12.1 10^3/uL (4.4-10.8)
[2019-09-27 15:01] VITALS: BP 122/61
[2019-09-27 16:46] VITALS: BP 114/64
--- NOTE | 2019-09-27 16:50 | NUR ---
Discharge Discharge instructions given as ordered. Encourage to follow up with PMD as instructed. All questions and concerns addressed. Patient verbalized understanding. Medication reconciliation form completed and copy given to patient. IV catheter removed, pressure dressing applied. Patient taken down to private vehicle via wheelchair, with all personal belongings, accompanied by staff and family member. No signs or symptoms of distress noted at this time.
== END 2019-09-27 16:50 | disposition home or self-care (01) | DRG 641 ==
LOC: ER 13:19 → OVERFLOW 13:20 → WEST WING 20:35
PROVIDERS: ADMIT Nurse Practitioner Acute Care; ATTEND Internal Medicine Geriatric Medicine
DX: E87.70 Fluid overload, unspecified (principal); I48.0 Paroxysmal atrial fibrillation; E11.65 Type 2 diabetes mellitus with hyperglycemia; K80.20 Calculus of gallbladder without cholecystitis without obstruction; D72.829 Elevated white blood cell count, unspecified; E78.00 Pure hypercholesterolemia, unspecified; R19.7 Diarrhea, unspecified; E66.01 Morbid (severe) obesity due to excess calories; E87.6 Hypokalemia; F41.9 Anxiety disorder, unspecified; I10 Essential (primary) hypertension; E78.5 Hyperlipidemia, unspecified; Z79.82 Long term (current) use of aspirin; Z68.27 Body mass index [BMI] 27.0-27.9, adult; Z79.84 Long term (current) use of oral hypoglycemic drugs; Z80.3 Family history of malignant neoplasm of breast; Z82.49 Family history of ischemic heart disease and other diseases of the circulatory system; Z83.3 Family history of diabetes mellitus
CPT/HCPCS: 36415; 74176; 80048; 80053; 81001; 82962; 83036; 83605; 83690; 83735; 85007; 85025; 85027; 87040; 87081; 87493; 93005; 96361; 96365; 96367; 96375; C9113; G0378; J1815; J2543; J3490

== ENCOUNTER 2019-09-27 22:01 | Emergency (ER) | payer OTHER, MEDICAID ==
[~2019-09-27] VITALS: Ht 165.1 cm; Wt 90.7 kg
[2019-09-27 22:38] LABS: Urine Bacteria FEW /hpf (None Seen); Urine Blood 1+ /uL (Negative); Urine Specific Gravity 1.008 (1.001-1.035); Urine WBC 2 /hpf (0 - 5)
[2019-09-27] MEDS ORDERED: SODIUM CHLORIDE 0.9% 500 ML IV ONE (23:00)
[2019-09-27] MEDS ORDERED: InsuLIN REG 1unit/0.01ml Soln (100units/ml) IV ONE (23:00)
[2019-09-28 01:07] VITALS: BP 132/66
[2019-09-28 01:37] LABS: Basophils # (auto) 0.1 uL; Basophils % (auto) 0.6 % (0.0-2.0); Eosinophils # (auto) 0.1 uL; Eosinophils % (auto) 0.6 % (0.0-7.0); Hemoglobin 11.1 g/dL (12.2-16.2); Lymphocytes # (auto) 2.4 uL; Lymphocytes % (auto) 16.3 % (10.0-50.0); Mean Corpuscular Hemoglobin 30.5 pg (28.0-32.0); Mean Corpuscular Hgb Conc. 33.7 g/dL (32.0-36.0); Mean Corpuscular Volume 90.4 fL (80.0-100.0); Neutrophils % (auto) 75.5 % (37.0-80.0); Platelet Count (auto) 428 10^3/uL (140-450); Red Blood Cells 3.65 10^6/uL (4.0-5.20); Red Cell Distribution Width 12.8 % (11.8-14.3); White Blood Cell 14.5 10^3/uL (4.4-10.8)
[2019-09-28 01:57] LABS: BUN/Creatinine Ratio 7.7; Calcium 7.8 mg/dL (8.5-10.1); Potassium 3.2 mmol/L (3.5-5.1)
[2019-09-28 02:00] LABS: Bilirubin, Total 0.4 mg/dL (0.2-1.0); Total Protein 6.4 g/dL (6.4-8.2)
== END 2019-09-28 02:08 | disposition home or self-care (01) ==
LOC: EDBD 22:01 → ER 22:07
DX: E11.65 Type 2 diabetes mellitus with hyperglycemia (principal); K86.1 Other chronic pancreatitis; E11.9 Type 2 diabetes mellitus without complications; E78.5 Hyperlipidemia, unspecified; I10 Essential (primary) hypertension; I48.91 Unspecified atrial fibrillation
CPT/HCPCS: 36415; 80053; 81001; 82150; 82962; 83690; 85025; 93005; 96361; 96374; 99284; J1815; J7040

== ENCOUNTER 2025-06-30 03:15 | Inpatient (IN) | payer OTHER, MEDICAID ==
[~2025-06-30] VITALS: Ht 157.5 cm; Wt 87.5 kg
[~2025-06-30 03:15] MED LIST changes: +AZIT-43 PO; -AZIT250T7 PO; +GEMF-66 PO; -GEMF600T7 PO; -VITA400C7 PO; +VITACAP28 PO
--- NOTE | 2025-06-30 03:46 | ED.PDOC ---
HPI Comments 74-year-old female who came to ER via EMS for shortness of breath. Patient does have history of hypertension, diabetes, and AFib. For the past 2 days, patient has been having substernal chest pain, pressure, non radiating, associated with shortness of breath, progressively worsening. Denies any fever, cough of bipedal edema. Patient saturating 88% on room air on scene Chief Complaint: Shortness of Breath Time Seen by MD: 03:46 Primary Care Provider: TORSTEN Kahn Notes: [employer] Officer Notes Allergies: Coded Allergies: NO KNOWN ALLERGIES (Unverified , 02/06/17) Home Meds Reported Medications Azithromycin (Azithromycin) 250 Mg Tab, 250 MG PO DAILY for UTI for 4 Days, #4 09/19/19 [place]-3 Fatty Acids (OMEGA-3) 300 Mg Cap, 1000 MG OR DAILY, CAP 09/19/19 Calcium Acetate (Phosphate Bin (Calcium Acetate) 667 Mg Cap, 600 MG PO DAILY for 30 Days, MG 09/19/19 Tocopheryl Acetate, Dl-Alpha (E-400) 400 Unit Cap, 400 UNIT PO DAILY, CAP 09/19/19 Allium Sativan Extract (Garlic) 2,000 Mg Tab, 1000 MG PO, TAB 09/19/19 Garlic (GARLIC) 1,250 Mg Tab, 1000 MG OR DAILY, TAB 09/19/19 Multiple Vitamin (Multi-Day Vitamins) Vitamins Tab, 1 TAB PO DAILY, #30 TAB 09/19/19 Aspirin (Asa) 81 Mg Ch, 81 MG PO DAILY, TAB.CHEW 09/19/19 Glipizide (Glipizide) 10 Mg Tab, 20 MG PO BID for 30 Days, MG 09/19/19 Furosemide (Furosemide) 20 Mg Tab, 20 MG PO DAILY for 30 Days, MG 09/19/19 Mirabegron Base (MYRBETRIQ) 25 Mg Tab, 25 MG OR DAILY, TAB 09/19/19 Gemfibrozil (Gemfibrozil) 600 Mg Tab, 600 MG PO BID for 30 Days 09/19/19 Metformin Hydrochloride (Metformin Hcl) 500 Mg Tab, 1000 MG PO IBID for 30 Days, MG 09/19/19 Information Source: Patient, Emergency Med Personnel Mode of Arrival: EMS Severity: Moderate Timing: Days Duration: Intermittent Prehospital treatment: Oxygen Past Medical History PAST MEDICAL HISTORY: AFIB, Anxiety, DM, High Lipids, HTN Surgical History: Denies all surgeries TOLL REPAIRER CENTRAL OFFICE History: No Pertinent TOLL REPAIRER CENTRAL OFFICE History Family History Family History: Family hx of DM, Family hx of heart sangeetha, Family hx of HTN, Family hx of lung sangeetha Social History Smoker: Non-Smoker Alcohol: Denies ETOH Use Drugs: Denies Drug Use Lives In: Home Constitutional: reports: diaphoresis, fatigue, weakness; denies: chills, fever, malaise, sweats, others EENTM: denies: blurred vision, double vision, ear bleeding, ear discharge, ear drainage, ear pain, ear ringing, eye pain, eye redness, hearing loss, mouth pain, mouth swelling, nasal discharge, nose bleeding, nose congestion, nose pain, photophobia, tearing, throat pain, throat swelling, voice changes, others Respiratory: reports: SOB at rest, shortness of breath; denies: cough, hemoptysis, orthopnea, SOB with excertion, stridor, wheezing, others Cardiovascular: reports: chest pain; denies: dizzy spells, diaphoresis, Dyspnea on exertion, edema, irregular heart beat, left arm pain, lightheadedness, palpitations, PND, syncope, others Gastrointestinal: denies: abdomen distended, abdominal pain, blood streaked bowels, constipated, diarrhea, dysphagia, difficulty swallowing, hematemesis, melena, nausea, poor appetite, poor fluid intake, rectal bleeding, rectal pain, vomiting, others Genitourinary: denies: abnormal vagina bleeding, burning, dyspareunia, dysuria, flank pain, frequency, hematuria, incontinence, pain, , vagina discharge, urgency, others Neurological: denies: dizziness, fainting, headache, left sided numbness, left sided weakness, numbness, paresthesia, pre-existing deficit, right sided numbness, right sided weakness, seizure, speech problems, tingling, tremors, weakness, others Musculoskeletal: denies: back pain, gout, joint pain, joint swelling, muscle pain, muscle stiffness, neck pain, others Integumetry: denies: bruises, change in color, change in hair/nails, dryness, laceration, lesions, lumps, rash, wounds, others Allergic/Immunocompromised: denies: Difficulty Healing, Frequent Infections, Hives, Itching, others Hematologic/Lymphatic: denies: anemia, blood clots, easy bleeding, easy bruising, swollen glands, others Endocrine: denies: excessive hunger, excessive sweating, excessive thirst, excessive urination, flushing, intolerance to cold, intolerance to heat, unexplained weight gain, unexplained weight loss, others Psychiatric: denies: anxiety, bipolar disorder, depression, hopeless, panic disorder, schizophrenia, sleepless, suicidal, others Physical Exam General Appearance: No Apparent Distress, Normal HEENT: Normal ENT Inspection, Pharynx Normal, TMs Normal Neck: Full Range of Motion, Non-Tender, Normal, Normal Inspection Respiratory: Chest Non-Tender, Lungs Clear, No Accessory Muscle Use, No Respiratory Distress, Normal Breath Sounds Cardiovascular: No Edema, No JVD, No Murmur, No Gallop, Normal Peripheral Pulses, Regular Rate/Rhythm Breast Exam: Deferred Gastrointestinal: No Organomegaly, Non Tender, No Pulsatile Mass, Normal Bowel Sounds, Soft Genitalia: Deferred Pelvic: Deferred Rectal: Deferred Extremities: No calf tenderness, Normal capillary refill, Normal inspection, Normal range of motion, Non-tender, No pedal edema Musculoskeletal : Apperance: Normal Neurologic: Alert, inventory control/shipping receiving II-XII nml as Tested, No Motor Deficits, Normal Affect, Normal Mood, No Sensory Deficits Cerebellar Function: Normal Reflexes: Normal Skin: Dry, Normal Color, Warm Lymphatic: No Adenopathy Was a procedure done? Was a procedure done?: No CP Differential Dx Differential Diagnosis: Angina, Anxiety / Panic Attack, Heart Failure, Hypoxia, MT, Pulmonary Embolus Differential Diagnosis: CHF Differential Diagnosis: Angina, Chest Wall Pain, Costochondritis, Esophageal reflux/spasm, Gastritis, Myocardial Infarction, Pericarditis, Pneumonia, Pneumothorax, Pulmonary Embolus X-Ray, Labs, Meds, VS Vital Signs Date Time Temp Pulse Resp B/P (MAP) Pulse Ox O2 Delivery O2 Flow Rate FiO2 06/30/25 03:20 74 06/30/25 03:15 99.0 74 22 123/52 94 99.0 Lab Test 06/30/25 04:36 06/30/25 03:30 Range/Units Troponin I High Sensitivity 11 8 </=34 ng/L White Blood Count 13.0 H 4.4-10.8 10^3/uL Red Blood Count 4.63 4.0-5.20 10^6/uL Hemoglobin 14.2 12.2-16.2 g/dL Hematocrit 41.7 36.0-46.0 % Mean Corpuscular Volume 90.0 80.0-100.0 fL Mean Corpuscular Hemoglobin 30.7 28.0-32.0 pg Mean Corpuscular Hemoglobin Concent 34.1 32.0-36.0 g/dL Red Cell Distribution Width 13.7 11.8-14.3 % Platelet Count 256 140-450 10^3/uL Mean Platelet Volume 8.6 6.9-10.8 fL Neutrophils (%) (Auto) 74.3 37.0-80.0 % Lymphocytes (%) (Auto) 16.3 10.0-50.0 % Monocytes (%) (Auto) 7.6 0.0-12.0 % Eosinophils (%) (Auto) 0.9 0.0-7.0 % Basophils (%) (Auto) 0.9 0.0-2.0 % Neutrophils # (Auto) 9.7 H 1.6-8.6 10 ^3/uL Lymphocytes # (Auto) 2.1 0.4-5.4 10 ^3/uL Monocytes # (Auto) 1.0 0-1.3 10 ^3/uL Eosinophils # (Auto) 0.1 0-0.8 10 ^3/uL Basophils # (Auto) 0.1 0-0.2 10 ^3/uL Nucleated Red Blood Cells 0.1 % Sodium Level 141 136-145 mmol/L Potassium Level 4.1 3.5-5.1 mmol/L Chloride Level 106 98-107 mmol/L Carbon Dioxide Level 24 20-31 mmol/L Anion Gap 11 5-15 Blood Urea Nitrogen 9 9-23 mg/dL Creatinine 0.69 0.550-1.02 mg/dL Glomerular Filtration Rate Calc 90 >90 mL/min BUN/Creatinine Ratio 13.0 10.0-20.0 Serum Glucose 154 H 74-106 mg/dL Calcium Level 9.0 8.7-10.4 mg/dL Time of 1ST Reevaluation: 03:41 Reevaluation 1ST: Unchanged Patient Education/Counseling: Diagnosis, Treatment Family Education/Counseling: No Family Present Comments Patient him in for shortness of breath and chest pain. The she has not had a acute myocardial infarction however chest x-ray does show she is in CHF she does not have pedal edema but the chest x-ray is already clearly demonstrating congestive heart failure. Patient will be given Lasix aspirin nitroglycerin and will be admitted for further workup. SEPSIS Sepsis Screen Date sepsis recognized/suspect: Jun 30, 2025 Time Sepsis recognized/suspect: 314 Recent Procedure: No On Antibiotic Therapy: No Respiratory Rate >20: No Heart Rate >90: No Temp<36 C (96.8 F) or >38.3 C: No SBP <90 or MAP <65 mmHG: No New Acute Mental Status Change: No Is the patient on CPAP, BIPAP,: No Physician Orders Electrocardigram (06/30/25 03:25) Continuous Ekg Monitoring 08,12,16,20,00,04 (06/30/25 03:28) Chest Xray 1 View (06/30/25 03:28) Covid19 Antigen Karen (06/30/25 ) Troponin-I Hs (06/30/25 06:28) Urinalysis (06/30/25 03:30) Furosemide Injection (Lasix Injection) (06/30/25 05:15) Nitroglycerin Oint (Nitro-Bid) (06/30/25 05:15) Aspirin Tablet (06/30/25 05:15) Vital Signs Date Time Temp Pulse Resp B/P (MAP) Pulse Ox O2 Delivery O2 Flow Rate FiO2 06/30/25 03:20 74 06/30/25 03:15 99.0 74 22 123/52 94 99.0 Laboratory Tests Test 06/30/25 03:30 White Blood Count 13.0 10^3/uL (4.4-10.8) H Departure 1 Departure Time of Disposition: 05:08 Impression: Primary Impression: CHF (congestive heart failure) Qualified Codes: I50.21 - Acute systolic (congestive) heart failure Disposition: ADMITTED INPATIENT Admit to: Tele Condition: Serious Critical Care Note Critical Care Time?: Yes (55 min-critical care time only) Critical care comment: Shortness of breath Due to concerns for patients condition deteriorating, the care required my highest level of attention and readiness to intervene. I assessed the patient, reviewed the medical records, ordered the appropriate tests and treatments, then reassessed for results and responsiveness. I communicated with medical personnel and consultants and formulated a plan of care. Total critical care time excludes any procedures Stability Stability form required: No Heart Score Heart Score: Heart Score Response (Comments) Value History Moderate Suspicious 1 EKG Repolarization Disturb 1 Age >65 2 Risk Factors >3 or Hx ASHD 2 Troponin Normal limit 0 Total 6 I personally scribed for DICKSON HIGGINBOTHAM MD ([email or web address]) on 06/30/25 at 03:46. Electronically submitted by Brandon Tse ([email or web address]). DICKSON HIGGINBOTHAM MD Jun 30, 2025 03:46
[2025-06-30 03:54] LABS: Hematocrit 41.7 % (36.0-46.0); Hemoglobin 14.2 g/dL (12.2-16.2); Mean Corpuscular Hemoglobin 30.7 pg (28.0-32.0); Mean Corpuscular Volume 90.0 fL (80.0-100.0); Nucleated Red Blood Cells % 0.1 %
[2025-06-30 03:58] LABS: Chloride 106 mmol/L (98-107); Potassium 4.1 mmol/L (3.5-5.1); Sodium 141 mmol/L (136-145)
[2025-06-30 03:59] LABS: Anion Gap 11 (5-15); Calcium 9.0 mg/dL (8.7-10.4); Carbon Dioxide 24 mmol/L (20-31)
[2025-06-30 04:04] LABS: BUN/Creatinine Ratio 13.0 (10.0-20.0)
[2025-06-30 04:05] LABS: Blood Urea Nitrogen 9 mg/dL (9-23); Glucose 154 mg/dL (74-106)
--- NOTE | 2025-06-30 05:15 | DVH ---
CHEST RADIOGRAPH Indication: sob Technique: 1 view Comparison: None FINDINGS: Lines and Tubes: None Lungs/Pleura: Diffuse interstitial prominence. No focal consolidation. Small left pleural effusion suspected. No pneumothorax. Cardiomediastinum: Upper normal heart size. Other: No acute osseous abnormality. IMPRESSION: 1. Diffuse interstitial opacities and suspected small left pleural effusion, likely representing hear t failure or less likely atypical infection.
[2025-06-30] MEDS: FUROSEMIDE 40 MG/4 ML VIAL IV ONE (06:01)
[2025-06-30] MEDS ORDERED: DEXTROSE (50%) 50ML SYRG IV PRN (06:30)
[2025-06-30] MEDS ORDERED: ONDANSETRON HCL 4 MG/2 ML VIAL IV PRN (06:30)
[2025-06-30] MEDS ORDERED: IPRATROPIUM BROM 0.5 MG/2.5ML INH SOL NEB PRN (06:30)
[2025-06-30] MEDS ORDERED: NITROGLYCERIN 0.4 MG SL TAB SL PRN (06:30)
[2025-06-30] MEDS ORDERED: HYDROcodone-ACET 5/325MG TAB PO PRN (06:30)
[2025-06-30] MEDS ORDERED: ALBUTEROL SULF 2.5 MG/0.5ML(0.5%) NEB SOLN NEB PRN (06:30)
[2025-06-30] MEDS ORDERED: ACETAMINOPHEN 325 MG TAB PO PRN (06:30)
[2025-06-30] MEDS ORDERED: MORPHINE SULFATE INJ 2 MG/ml SYRG IV PRN (06:30)
[2025-06-30] MEDS ORDERED: DOCUSATE SOD 100 MG CAP PO PRN (06:30)
--- NOTE | 2025-06-30 06:32 | DVHHP2 ---
History of Present Illness Reason for Visit: Acute exacerbation of congestive heart failure History of Present Illness The patient is a 74-year-old female with past medical history of sleep apnea, anxiety, AFib, diabetes mellitus, hyperlipidemia, and hypertension who presented to [facility] ED with complaint of shortness of breaths. Patient reports she has been experiencing shortness of breaths associated with substernal chest pain, pressure-like in nature, nonradiating, progressively getting worse. Patient was seen and evaluated in the ED, laboratory data shows WBC 13.0, platelets 256, sodium 141, potassium 4.1, BUN nine, creatinine 0.69, GFR 90, glucose 154, calcium 9.0, BNP 163.34, troponin 11, blood pressure 112/49, heart rate 74, temperature 99.0 F, O2 saturation 94% on oxygen. Chest x-ray revealing diffuse interstitial opacities and suspected small left pleural effusion, likely representing heart failure less likely atypical infection. Patient was started on IV Lasix, please see medication orders section in the computer. On my assessment, patient denied chest pain at this moment, no headache, no dizziness, no diaphoresis, currently on oxygen, no nausea, no vomiting, no fever, no chills. Patient was admitted for further evaluation medical management. Past Medical History Sleep apnea, AFIB, Anxiety, DM, High Lipids, HTN Past Surgical History Denies all surgeries Family History Reviewed, noncontributory to the management of this case. Past Social History The patient lives at home, denies smoking, alcohol or illicit drugs abuse. Review of Systems Constitutional: Yes: Weakness, Other (Fatigue, diaphoresis.); No: Fever, Chills, Sweats, Malaise Eyes: No: Pain, Vision change, Conjunctivae inflammation, Eyelid inflammation, Other, Redness ENT: No: Ear pain, Ear discharge, Nose pain, Nose discharge, Nose congestion, Mouth pain, Mouth swelling, Throat pain, Throat swelling, Other Respiratory: Shortness of breath, Other (SOB at rest); No: Cough, Dry, SOB with excertion, Wheezing, Hemoptysis, Pleuritic Pain, Sputum, Wheezing Cardiovascular: Chest Pain; No: Palpitations, Orthopnea, Paroxysmal Noc. Dyspnea, Edema, Lt Headedness, Other Gastrointestinal: No: Nausea, Vomiting, Abdominal Pain, Diarrhea, Constipation, Melena, Hematochezia, Other Genitourinary: No Dysuria, No Frequency, No Incontinence, No Hematuria, No Retention, No Other Musculoskeletal: No: other, neck pain, shoulder pain, arm pain, back pain, hand pain, leg pain, foot pain Skin: No: Rash, Lesions, Jaundice, Bruising, Other Neurological: No: Weakness, Numbness, Incoordination, Change in speech, Confusion, Seizures, Other Allergies: Coded Allergies: NO KNOWN ALLERGIES (Unverified , 02/06/17) Exam Vital Signs Vital Signs Date Time Temp Pulse Resp B/P (MAP) Pulse Ox O2 Delivery O2 Flow Rate FiO2 06/30/25 06:01 112/49 06/30/25 03:20 74 06/30/25 03:15 99.0 22 94 99.0 General Appearance: Alert, Oriented X3, Cooperative, No acute distress HEENT: Atraumatic, PERRLA, EOMI, Mucous membr. moist/pink Respiratory: Clear to auscultation, Normal air movement Cardiovascular: Regular rate, Normal S1, Normal S2, No murmurs Abdominal: Normal bowel sounds, Soft, No hepatospenomegaly, No masses, Other (Reports tenderness) Extremities: No clubbing, No cyanosis, No edema, Normal pulses, No tenderness/swelling Skin: No rashes, No breakdown, No significant lesion Neuro: Normal speech, Normal tone, Sensation intact, Cranial nerves 3-12 NL, Reflexes 2+, Other (Generalized weakness) Psych/Mental Status: Mental status NL, Mood NL Labs/Xrays Labs Test 06/30/25 04:36 06/30/25 03:30 Range/Units Troponin I High Sensitivity 11 </=34 ng/L White Blood Count 13.0 H 4.4-10.8 10^3/uL Red Blood Count 4.63 4.0-5.20 10^6/uL Hemoglobin 14.2 12.2-16.2 g/dL Hematocrit 41.7 36.0-46.0 % Mean Corpuscular Volume 90.0 80.0-100.0 fL Mean Corpuscular Hemoglobin 30.7 28.0-32.0 pg Mean Corpuscular Hemoglobin Concent 34.1 32.0-36.0 g/dL Red Cell Distribution Width 13.7 11.8-14.3 % Platelet Count 256 140-450 10^3/uL Mean Platelet Volume 8.6 6.9-10.8 fL Neutrophils (%) (Auto) 74.3 37.0-80.0 % Lymphocytes (%) (Auto) 16.3 10.0-50.0 % Monocytes (%) (Auto) 7.6 0.0-12.0 % Eosinophils (%) (Auto) 0.9 0.0-7.0 % Basophils (%) (Auto) 0.9 0.0-2.0 % Neutrophils # (Auto) 9.7 H 1.6-8.6 10 ^3/uL Lymphocytes # (Auto) 2.1 0.4-5.4 10 ^3/uL Monocytes # (Auto) 1.0 0-1.3 10 ^3/uL Eosinophils # (Auto) 0.1 0-0.8 10 ^3/uL Basophils # (Auto) 0.1 0-0.2 10 ^3/uL Nucleated Red Blood Cells 0.1 % Sodium Level 141 136-145 mmol/L Potassium Level 4.1 3.5-5.1 mmol/L Chloride Level 106 98-107 mmol/L Carbon Dioxide Level 24 20-31 mmol/L Anion Gap 11 5-15 Blood Urea Nitrogen 9 9-23 mg/dL Creatinine 0.69 0.550-1.02 mg/dL Glomerular Filtration Rate Calc 90 >90 mL/min BUN/Creatinine Ratio 13.0 10.0-20.0 Serum Glucose 154 H 74-106 mg/dL Calcium Level 9.0 8.7-10.4 mg/dL B-Type Natriuretic Peptide 163.34 0-100 pg/mL PATIENT: HORACE DANIELLE ACCT: [id number] UNIT: [id number] : 1950 LOC: ER ROOM / BED: / AGE / SEX: 74 / F ADM STATUS: REG ER SERVICE 0328 ORDERING PHYSICIAN: DICKSON HIGGINBOTHAM MD PROCEDURE(s): CXR1 - CHEST XRAY 1 VIEW REASON: sob ORDER NUMBER(s): [id number], ACCESSION NUMBER(s): [id number] CHEST RADIOGRAPH Indication: sob Technique: 1 view Comparison: None FINDINGS: Lines and Tubes: None Lungs/Pleura: Diffuse interstitial prominence. No focal consolidation. Small left pleural effusion suspected. No pneumothorax. Cardiomediastinum: Upper normal heart size. Other: No acute osseous abnormality. IMPRESSION: 1. Diffuse interstitial opacities and suspected small left pleural effusion, likely representing heart failure or less likely atypical infection. SEPSIS Sepsis Screen Date sepsis recognized/suspect: Jun 30, 2025 Time Sepsis recognized/suspect: 314 Recent Procedure: No On Antibiotic Therapy: No Respiratory Rate >20: No Heart Rate >90: No Temp<36 C (96.8 F) or >38.3 C: No SBP <90 or MAP <65 mmHG: No New Acute Mental Status Change: No Is the patient on CPAP, BIPAP,: No Physician Orders Electrocardigram (06/30/25 03:25) Continuous Ekg Monitoring 08,12,16,20,00,04 (06/30/25 03:28) Chest Xray 1 View (06/30/25 03:28) Covid19 Antigen Karen (06/30/25 ) Troponin-I Hs (06/30/25 06:28) Urinalysis (06/30/25 03:30) *Consult / (06/30/25 06:23) Furosemide Injection (Lasix Injection) (06/30/25 10:00) Methylprednisolone Sod Succ (Solu Medrol (06/30/25 06:30) Methylprednisolone Sod Succ (Solu Medrol (06/30/25 14:00) Famotidine Injection (Pepcid Injection) (06/30/25 10:00) Ceftriaxone Ivpb Rocephin (06/30/25 09:00) Ceftriaxone Ivpb Rocephin (06/30/25 06:30) Azithromycin 500mg/ 250ml (Zithromax 50 (06/30/25 10:00) Azithromycin 500mg/ 250ml (Zithromax 50 (06/30/25 06:30) Albuterol Medneb (Ventolin Medneb) (06/30/25 06:30) Ipratropium Medneb (Atrovent Medneb) (06/30/25 06:30) Consistent Carb(Ccho)Diabetes (06/30/25 Breakfast) Atorvastatin (Lipitor) (06/30/25 22:00) Aspirin Tablet (06/30/25 10:00) Glucose Blood (Accu-Chek Comfort Curve T (06/30/25 08:00) Mild Sliding Scale (06/30/25 08:00) Dextrose 50% Syringe (06/30/25 06:30) Admit (06/30/25 06:23) Allergies (06/30/25 06:23) Code Status (06/30/25 06:23) Sodium Chloride Lock (Saline Lock Ns) (06/30/25 14:00) Oxygen Per Hour (06/30/25 06:23) Hydrocodone-Acet 5/325mg Tab ([place] 5/32 (06/30/25 06:30) Ondansetron Hcl (Zofran) (06/30/25 06:30) Docusate Sodium Capsule (Colace Capsule) (06/30/25 06:30) Fall Risk Precautions In Place QSHIFT (06/30/25 06:23) Complete Blood Count (07/01/25 04:00) Comprehensive Metabolic Panel (07/01/25 04:00) Echo 2d Mode Cardiac Dop (06/30/25 06:23) Condition: Serious (06/30/25 06:23) Acetaminophen Tablet (Tylenol Tablet) (06/30/25 06:30) Maintain Bed Rest (06/30/25 06:23) Sequential Compression Device (06/30/25 ) Nitroglycerin Sublingual (Ntrostat Subli (06/30/25 06:30) Morphine Sulfate Injection (06/30/25 06:30) Stat Ekg For Chest Pain (06/30/25 06:23) Notify Md Of Changes From Base (06/30/25 06:23) Spectroscopist For 24 Hours (06/30/25 06:23) Emergency Dysrhythmia Protocol (06/30/25 06:23) Rhythm Strips Once Every Shift (06/30/25 06:23) Oxygen By Nasal Cannula (06/30/25 06:23) Vital Signs Date Time Temp Pulse Resp B/P (MAP) Pulse Ox O2 Delivery O2 Flow Rate FiO2 06/30/25 06:01 112/49 06/30/25 03:20 74 06/30/25 03:15 99.0 74 22 123/52 94 99.0 Laboratory Tests Test 06/30/25 03:30 White Blood Count 13.0 10^3/uL (4.4-10.8) H Medications Medications Dose Ordered Sig/Nohelia Route Start Time Stop Time Status Last Admin Dose Admin Aspirin 325 mg ONCE ONCE PO 06/30/25 05:15 06/30/25 05:16 DC 06/30/25 06:02 325 MG Furosemide 40 mg ONCE ONCE IV 06/30/25 05:15 06/30/25 05:16 DC 06/30/25 06:01 40 MG Assessment/Plan Assessment/Plan Acute exacerbation of congestive heart failure Congestive heart failure, unspecified Generalized weakness Leukocytosis, unspecified Pneumonia, unspecified organism Plan 1. Admit to telemetry unit 2. Breathing treatment 3. Pain control management 4. IV antibiotic management 5. Management of fluids and electrolytes 6. Consultation for site specialist/hospitalist 7. Diagnostic test chest x-ray 8. DVT prophylaxis-on aspirin 9. Repeat labs CBC, CMP in a.m. 10. Home medication reviewed and reconciled 11. Continue with current medical management 12. Treatment plan discussed with patient and RN. Patient verbalized understanding. Plan discussed with: Patient, Other (RN) My Orders Orders - NAOMI RANGEL DNP Procedure Category Date Status Time *Consult CONS 06/30/25 Verified / 06:23 Furosemide Injection PHA 06/30/25 Verified (Lasix Injection) 10:00 Methylprednisolone PHA 06/30/25 Verified Sod Succ (Solu Medrol 06:30 Methylprednisolone PHA 06/30/25 Verified Sod Succ (Solu Medrol 14:00 Famotidine Injection PHA 06/30/25 Verified (Pepcid Injection) 10:00 Ceftriaxone Ivpb PHA 06/30/25 Verified Rocephin 09:00 Ceftriaxone Ivpb PHA 06/30/25 Verified Rocephin 06:30 Azithromycin 500mg/ PHA 06/30/25 Verified 250ml (Zithromax 50 10:00 Azithromycin 500mg/ PHA 06/30/25 Verified 250ml (Zithromax 50 06:30 Albuterol Medneb PHA 06/30/25 Verified (Ventolin Medneb) 06:30 Ipratropium Medneb PHA 06/30/25 Verified (Atrovent Medneb) 06:30 Consistent DIET 06/30/25 Verified Carb(Ccho)Diabetes Breakfast Atorvastatin (Lipitor) PHA 06/30/25 Verified 22:00 Aspirin Tablet PHA 06/30/25 Verified 10:00 Glucose Blood PHA 06/30/25 Verified (Accu-Chek Comfort 08:00 Mild Sliding Scale PHA 06/30/25 Verified 08:00 Dextrose 50% Syringe PHA 06/30/25 Verified 06:30 Admit ADMIT 06/30/25 Verified 06:23 Allergies [facility] 06/30/25 Verified 06:23 Code Status CODE 06/30/25 Verified 06:23 Sodium Chloride Lock PHA 06/30/25 Verified (Saline Lock Ns) 14:00 Oxygen Per Hour RT 06/30/25 Verified 06:23 Hydrocodone-Acet PHA 06/30/25 Verified 5/325mg Tab ([place] 06:30 Ondansetron Hcl PHA 06/30/25 Verified (Zofran) 06:30 Docusate Sodium [facility] 06/30/25 Verified Capsule (Colace 06:30 Fall Risk Precautions [facility] 06/30/[address] 06:23 Complete Blood Count LAB 07/01/25 Verified 04:00 Comprehensive LAB 07/01/25 Verified Metabolic Panel 04:00 Echo 2d Mode Cardiac US 06/30/25 Verified DOP 06:23 Condition: Serious [facility] 06/30/25 Verified 06:23 Acetaminophen Tablet [facility] 06/30/25 Verified (Tylenol Tablet) 06:30 Maintain Bed Rest [facility] 06/30/25 Verified 06:23 Sequential [facility] 06/30/25 Verified Compression Device Nitroglycerin [facility] 06/30/25 Verified Sublingual (Ntrostat 06:30 Morphine Sulfate [facility] 06/30/25 Verified Injection 06:30 Stat Ekg For Chest [facility] 06/30/25 Verified Pain 06:23 Notify Md Of Changes [facility] 06/30/25 Verified From Base 06:23 Spectroscopist For [facility] 06/30/25 Verified 24 Hours 06:23 Emergency Dysrhythmia [facility] 06/30/25 Verified Protocol 06:23 Rhythm Strips Once [facility] 06/30/25 Verified Every Shift 06:23 Oxygen By Nasal RT 06/30/25 Verified Cannula 06:23 Problem List: (1) Acute exacerbation of congestive heart failure (2) Congestive heart failure, unspecified (3) Generalized weakness (4) Leukocytosis, unspecified (5) Pneumonia, unspecified organism Date of Service: Jun 30, 2025 Billing Provider: NAOMI RANGEL DNP Common Visit Codes: [id number] INP/OBS CARE (HIGH) NAOMI RANGEL DNP Jun 30, 2025 06:32
[2025-06-30] MEDS: AZITHROMYCIN 500MG/ 250ML 250 ML IV ONE (07:00)
[2025-06-30 10:00] VITALS: BP 104/56; PULSE 69; RESP 18; TEMP 98; O2SAT 98
[2025-06-30] MEDS: FAMOTIDINE (10MG/ML) 2ML VL IV SCH (10:00)
[2025-06-30] MEDS: cefTRIAXone 1GM/50ML D5W 50 ML IV ONE (10:30)
[2025-06-30] MEDS: methylPREDNISolone SOD SUCC 125 MG/2 ML VL IV ONE (10:30)
[2025-06-30] MEDS: InsuLIN REG 1unit/0.01ml Soln (100units/ml) SC SCH (10:30)
[2025-06-30] MEDS: ACCU-CHEK COMFORT CURVE STRIP VI SCH (11:00)
[2025-06-30] MEDS: NITROGLYCERIN 2% OINT 1GM PKG TD ONE (11:15)
[2025-06-30] MEDS: SODIUM CHLOR 0.9% PF (SALINE LOCK) 10ML VIAL/SYR IV SCH (14:00)
[2025-06-30] MEDS: FUROSEMIDE 40 MG/4 ML VIAL IV SCH (17:58)
[2025-06-30 18:32] LABS: Urine Protein, UAD Negative (Negative)
[2025-06-30 18:52] LABS: COVID19 ANTIGEN SOFIA FIA NEGATIVE (NEGATIVE)
--- NOTE | 2025-06-30 18:58 | DVHPN2 ---
Subjective 74-year-old female with a known history of diabetes type 2, hypertension, chronic AFib currently on Xarelto presented to the hospital with shortness of breath found to have acute CHF exacerbation and possibly pneumonia. Changes from previous H/P or p: No Changes Eyes: No Pain, No Vision change, No Conjunctivae inflammation, No Eyelid inflammation, No Other, No Redness ENT: No Ear pain, No Ear discharge, No Nose pain, No Nose discharge, No Nose congestion, No Mouth pain, No Mouth swelling, No Throat pain, No Throat swelling, No Other Cardiovascular: Chest Pain; No Palpitations, No Orthopnea, No Paroxysmal Noc. Dyspnea, No Edema, No Lt Headedness, No Other Respiratory: No Cough, No Dry; Shortness of breath; No SOB with excertion, No Wheezing, No Hemoptysis, No Pleuritic Pain, No Sputum; Other (SOB at rest) Gastrointestinal: No Nausea, No Vomiting, No Abdominal Pain, No Diarrhea, No Constipation, No Melena, No Hematochezia, No Other Genitourinary: No Dysuria, No Frequency, No Incontinence, No Hematuria, No Retention, No Other Musculoskeletal: No other, No neck pain, No shoulder pain, No arm pain, No back pain, No hand pain, No leg pain, No foot pain Skin: No Rash, No Lesions, No Jaundice, No Bruising, No Other Objective Vitals Vital Signs Date Time Temp Pulse Resp B/P (MAP) Pulse Ox O2 Delivery O2 Flow Rate FiO2 06/30/25 17:58 121/69 06/30/25 10:00 98.0 69 18 98 2.0 98.0 Exam HEENT pupils reactive Neck is supple CVS S1-S2 regular rate and rhythm Respiratory diminished breath sounds at lung bases with the minimal basal crackles GI positive bowel sounds Extremities no pedal edema [employer] no motor deficit Medications Current Medications Medications Dose Ordered Sig/Nohelia Route Start Time Stop Time Status Last Admin Dose Admin Furosemide 40 mg DAILY IV 06/30/25 10:00 06/30/25 17:58 40 MG Methylprednisolone Sodium Succinate 40 mg Q8HR IV 07/01/25 06:00 Famotidine 20 mg Q12HR IV 06/30/25 10:00 Ceftriaxone Sodium 50 ml @ 100 mls/hr DAILY@09 IV 07/01/25 09:00 Azithromycin 250 ml @ 125 mls/hr DAILY IV 07/01/25 10:00 Albuterol 2.5 mg Q4HPRN PRN NEB 06/30/25 06:30 Ipratropium [place] 0.5 mg Q4HPRN PRN NEB 06/30/25 06:30 Atorvastatin Calcium 20 mg HS PO 06/30/25 22:00 Aspirin 81 mg DAILY PO 06/30/25 10:00 06/30/25 17:51 81 MG Diagnostic Test (Pha) 1 strip IQ4HR 06/30/25 08:00 06/30/25 16:00 1 STRIP Insulin Human Regular IQ4HR SC 06/30/25 08:00 06/30/25 16:00 6 UNITS Dextrose 50 ml UD PRN IV 06/30/25 06:30 Sodium Chloride 10 ml Q8HR IV 06/30/25 14:00 06/30/25 14:00 10 ML Acetaminophen/ Hydrocodone Bitart 1 tab Q4HP PRN PO 06/30/25 06:30 Ondansetron HCl 4 mg Q4HP PRN IV 06/30/25 06:30 Docusate Sodium 100 mg BIDPRN PRN PO 06/30/25 06:30 Acetaminophen 650 mg Q6HP PRN PO 06/30/25 06:30 Nitroglycerin 0.4 mg Q5MINP PRN SL 06/30/25 06:30 Morphine Sulfate 2 mg Q30M PRN IV 06/30/25 06:30 Laboratory Results Laboratory Tests 06/30/25 03:30 Chemistry Test 06/30/25 03:30 Calcium Level 9.0 mg/dL (8.7-10.4) Cardiac Markers Test 06/30/25 03:30 B-Type Natriuretic Peptide 163.34 pg/mL (0-100) Urinalysis Test 06/30/25 18:00 Urine Color Colorless (Yellow) Urine Clarity Clear (Clear) Urine pH 5.0 (5.0-9.0) Urine Specific [place] 1.011 (1.001-1.035) Urine Protein Negative (Negative) Urine Ketones Negative (Negative) Urine Blood Negative /uL (Negative) Urine Nitrite Negative (Negative) Urine Bilirubin Negative (Negative) Urine Urobilinogen Normal mg/dL (Negative) Urine Leukocyte Esterase Negative /uL (Negative) Urine RBC <1 /hpf (0 - 4) Urine Microscopic WBC < 1 /HPF (0-5) Urine Squamous Epithelial Cells None seen /hpf (<5) Urine Bacteria None seen /hpf (None Seen) Urine Glucose 4+ mg/dL (Normal) H Assessment/Plan Assessment/Plan Patient will female with a known history of diabetes mellitus type 2, hypertension, hypertriglyceridemia, chronic AFib presented to the hospital with increasing shortness of breath found to have 1. Acute hypoxic respiratory failure secondary to acute CHF exacerbation 2. Acute CHF was then admission rule or systolic/diastolic dysfunction 3. Community-acquired pneumonia next 4. Diabetes mellitus type 2 next 5. Hypertension 6. Chronic AFib currently in normal sinus rhythm -IV antibiotics, IV dyes daily weight, dose, 2D echo -resume home dose of Xarelto. Plan discussed with: Patient My Orders Orders - SG VIDAL MD Procedure Category Date Status Time (Nf) Xarelto PHA 06/30/25 Verified 19:00 Date of Service: Jun 30, 2025 Billing Provider: SG VIDAL MD Common Visit Codes: [id number] INP/OBS CARE(MOD) SG VIDAL MD Jun 30, 2025 18:58
--- NOTE | 2025-06-30 19:18 | ECG ---
[facility] Test Date: 2025-06-30 Test Time: 03:20:05 Pat Name: HORACE DANIELLE Department: [facility] ED Patient ID: [id number] Room: 0221T Gender: F Driving Teacher: RACHAEL : 1950 Requested By: DICKSON HIGGINBOTHAM Order Number: [id number] Reading MD: Isaac Quiros Measurements Intervals [place] Rate: 74 P: 71 CA: 243 QRS: 51 QRSD: 114 T: 15 QT: 404 QTc: 449 Interpretive Statements Sinus rhythm Prolonged CA interval Borderline intraventricular conduction delay Low voltage, precordial leads Electronically Signed On 07-03-2025 18:36:47 PDT by Isaac Quiros Please click the below link to view image of tracing.
[2025-06-30] MEDS: RIVAROXABAN 15 MG TAB PO SCH (19:55)
[2025-06-30 20:45] VITALS: O2SAT 97
[2025-06-30] MEDS: ATORVASTATIN 20 MG TAB PO SCH (21:13)
[2025-06-30 22:30] VITALS: PULSE 62; RESP 18; O2SAT 95
[2025-06-30 22:46] VITALS: BP 123/44; PULSE 62; RESP 20; TEMP 97.6; O2SAT 96
[2025-06-30] MEDS ORDERED: METO-158 PO (23:41)
[2025-06-30] MEDS ORDERED: GLIP5TAB21 PO (23:41)
[2025-06-30] MEDS ORDERED: EMPA1TAB3 PO (23:41)
[2025-06-30] MEDS ORDERED: ATOR10TA52 PO (23:41)
[2025-06-30] MEDS ORDERED: CHOL1TAB PO (23:42)
[2025-06-30] MEDS ORDERED: RIVA15TA PO (23:42)
[2025-07-01] VITALS (11 sets, daily range): BP systolic 108–124; BP diastolic 45–63; PULSE 53–70; RESP 14–20; TEMP 97.4–98.1; O2SAT 95–99
[2025-07-01] MEDS ORDERED: methylPREDNISolone SOD SUCC 40 MG/ML VL IV SCH (06:00)
[2025-07-01 07:27] LABS: Hematocrit 40.8 % (36.0-46.0); Hemoglobin 14.1 g/dL (12.2-16.2); Mean Corpuscular Hemoglobin 31.2 pg (28.0-32.0); Mean Corpuscular Volume 90.5 fL (80.0-100.0); Nucleated Red Blood Cells % 0.1 %
[2025-07-01 07:52] LABS: Alanine Aminotransferase 20 U/L (7-40); Albumin 4.6 g/dL (3.2-4.8); Alkaline Phosphatase 55 U/L (46-116); Anion Gap 10 (5-15); BUN/Creatinine Ratio 21.5 (10.0-20.0); Blood Urea Nitrogen 17 mg/dL (9-23); Calcium 9.6 mg/dL (8.7-10.4); Carbon Dioxide 28 mmol/L (20-31); Chloride 106 mmol/L (98-107); Potassium 3.9 mmol/L (3.5-5.1); Sodium 144 mmol/L (136-145); Total Protein 7.4 g/dL (5.7-8.2)
[2025-07-01 07:54] LABS: Bilirubin, Total 1.5 mg/dL (0.2-1.0); Glucose 168 mg/dL (74-106)
[2025-07-01] MEDS: glipiZIDE 5 MG TAB PO SCH (10:23)
[2025-07-01] MEDS: cefTRIAXone 1GM/50ML D5W 50 ML IV SCH (10:24)
--- NOTE | 2025-07-01 11:42 | DVHPN2 ---
Subjective Created in error we will be seen by choice physician Reviewed: Care Plan Changes from previous H/P or p: No Changes General: Per HPI Eyes: No Pain, No Vision change, No Conjunctivae inflammation, No Eyelid inflammation, No Other, No Redness ENT: No Ear pain, No Ear discharge, No Nose pain, No Nose discharge, No Nose congestion, No Mouth pain, No Mouth swelling, No Throat pain, No Throat swelling, No Other Cardiovascular: Chest Pain; No Palpitations, No Orthopnea, No Paroxysmal Noc. Dyspnea, No Edema, No Lt Headedness, No Other Respiratory: No Cough, No Dry; Shortness of breath; No SOB with excertion, No Wheezing, No Hemoptysis, No Pleuritic Pain, No Sputum; Other (SOB at rest) Gastrointestinal: No Nausea, No Vomiting, No Abdominal Pain, No Diarrhea, No Constipation, No Melena, No Hematochezia, No Other Genitourinary: No Dysuria, No Frequency, No Incontinence, No Hematuria, No Retention, No Other Musculoskeletal: No other, No neck pain, No shoulder pain, No arm pain, No back pain, No hand pain, No leg pain, No foot pain Skin: No Rash, No Lesions, No Jaundice, No Bruising, No Other Objective Vitals Vital Signs Date Time Temp Pulse Resp B/P (MAP) Pulse Ox O2 Delivery O2 Flow Rate FiO2 07/01/25 10:24 118/46 07/01/25 09:52 98 Nasal Cannula 2.0 07/01/25 09:52 28 07/01/25 09:04 98.1 54 15 98.1 Intake/Output Intake and Output 07/01/25 07:00 Intake Total 450 ml Balance 450 ml Intake Oral 450 ml # Voids 1 Medications Current Medications Medications Dose Ordered Sig/Nohelia Route Start Time Stop Time Status Last Admin Dose Admin Furosemide 40 mg DAILY IV 06/30/25 10:00 07/01/25 10:24 40 MG Ceftriaxone Sodium 50 ml @ 100 mls/hr DAILY@09 IV 07/01/25 09:00 07/01/25 10:24 100 MLS/HR Azithromycin 250 ml @ 125 mls/hr DAILY IV 07/01/25 10:00 Albuterol 2.5 mg Q4HPRN PRN NEB 06/30/25 06:30 Ipratropium [place] 0.5 mg Q4HPRN PRN NEB 06/30/25 06:30 Atorvastatin Calcium 20 mg HS PO 06/30/25 22:00 06/30/25 21:13 20 MG Aspirin 81 mg DAILY PO 06/30/25 10:00 07/01/25 10:23 81 MG Diagnostic Test (Pha) 1 strip IQ4HR 06/30/25 08:00 07/01/25 08:23 1 STRIP Insulin Human Regular IQ4HR SC 06/30/25 08:00 07/01/25 08:37 3 UNITS Dextrose 50 ml UD PRN IV 06/30/25 06:30 Sodium Chloride 10 ml Q8HR IV 06/30/25 14:00 07/01/25 05:06 10 ML Acetaminophen/ Hydrocodone Bitart 1 tab Q4HP PRN PO 06/30/25 06:30 Ondansetron HCl 4 mg Q4HP PRN IV 06/30/25 06:30 Docusate Sodium 100 mg BIDPRN PRN PO 06/30/25 06:30 Acetaminophen 650 mg Q6HP PRN PO 06/30/25 06:30 Nitroglycerin 0.4 mg Q5MINP PRN SL 06/30/25 06:30 Morphine Sulfate 2 mg Q30M PRN IV 06/30/25 06:30 Rivaroxaban 15 mg DAILY@DINNER PO 06/30/25 19:30 06/30/25 19:55 15 MG Glipizide 5 mg BID PO 07/01/25 10:00 07/01/25 10:23 5 MG Metformin HCl 1,000 mg IBID PO 07/01/25 18:00 Laboratory Results Laboratory Tests 07/01/25 06:53 Chemistry Test 07/01/25 06:53 Albumin 4.6 g/dL (3.2-4.8) Calcium Level 9.6 mg/dL (8.7-10.4) Total Protein 7.4 g/dL (5.7-8.2) LFT Test 07/01/25 06:53 Alanine Aminotransferase (ALT) 20 U/L (7-40) Alkaline Phosphatase 55 U/L (46-116) Aspartate Amino Transferase (AST) 14 U/L (13-40) Total Bilirubin 1.5 mg/dL (0.2-1.0) H Urinalysis Test 06/30/25 18:00 Urine Color Colorless (Yellow) Urine Clarity Clear (Clear) Urine pH 5.0 (5.0-9.0) Urine Specific [place] 1.011 (1.001-1.035) Urine Protein Negative (Negative) Urine Ketones Negative (Negative) Urine Blood Negative /uL (Negative) Urine Nitrite Negative (Negative) Urine Bilirubin Negative (Negative) Urine Urobilinogen Normal mg/dL (Negative) Urine Leukocyte Esterase Negative /uL (Negative) Urine RBC <1 /hpf (0 - 4) Urine Microscopic WBC < 1 /HPF (0-5) Urine Squamous Epithelial Cells None seen /hpf (<5) Urine Bacteria None seen /hpf (None Seen) Urine Glucose 4+ mg/dL (Normal) H Labs and/or images reviewed: Labs reviewed by me, Image(s) reviewed by me Assessment/Plan Assessment/Plan Created in error, we will be seen by choice physician Plan discussed with: Patient Date of Service: Jul 01, 2025 Billing Provider: JOLIE CARROLL MD Common Visit Codes: NOT BILLABLE JOLIE CARROLL MD Jul 01, 2025 11:42
[2025-07-01] MEDS: AZITHROMYCIN 500MG/ 250ML 250 ML IV SCH (12:06)
--- NOTE | 2025-07-01 12:16 | DVHSR ---
APPROVED REPORT EXAM: Two-dimensional and M-mode echocardiogram with Doppler and color Doppler. Blood Pressure: 118/56 mmHg INDICATION Heart Failure RISK FACTORS Height: 5'2", Weight: 200 DIMENSIONS LVDd4.8 (3.8-5.7cm)LA (2D)3.9 (1.9-4.0cm)Aortic Root3.1 (2.0-3.7cm) LVDs2.9 (2.5-4.0cm)LA (MM) (1.9-4.0cm)Aortic Cusp Exc1.7 (1.5-2.0cm) EF (%) 69.0 (55-70%)Rt. Atrium3.5 (1.9-4.0cm)Asc. Aorta3.1 cm IVSd1.2 (0.7-1.1cm)RV (D)3.6 (1.8-2.4cm) PWd0.9 (0.7-1.1cm) Mitral Valve MitralMitral Stenosis E wave1.13m/sMV Mean GR.mmHg A wave0.57m/sMV Peak GR.mmHg E/A ratio2.02D MVAcm2 DECEL [id number] 1/2 Timems Aortic Valve Aortic ValveAortic Stenosis V11.05m/Rai Mean GR.3mmHg V21.17m/Rai Peak GR.5mmHg LVOT Diameter2.1 (1.8-2.4cm)Doppler AVA3.11cm2 Pulmonic Valve V21.06m/s Tricuspid Valve TR Velocity2.87m/s [id number] Other Information Quality : Technically LimitedRhythm : Technically limited study due to body habitus. Conclusion lvef 60% normal RV Function biatrial enlargement mild to moderate mitral regurg mild to moderate tricuspid regurg
[2025-07-01] MEDS ORDERED: FURO40TA4 PO (14:56)
[2025-07-01] MEDS ORDERED: POTA8TAB38 PO (14:58)
--- NOTE | 2025-07-01 14:59 | DVHDS2 ---
Discharge Summary Date of Admission Jun 30, 2025 at 06:23 Date of Discharge: Jul 01, 2025 Labs/Diagnostic Data: Laboratory Results Test 07/01/25 11:47 07/01/25 06:53 06/30/25 18:00 06/30/25 06:28 POC Glucose 233 mg/dl (70-106) White Blood Count 12.6 10^3/uL (4.4-10.8) Red Blood Count 4.51 10^6/uL (4.0-5.20) Hemoglobin 14.1 g/dL (12.2-16.2) Hematocrit 40.8 % (36.0-46.0) Mean Corpuscular Volume 90.5 fL (80.0-100.0) Mean Corpuscular Hemoglobin 31.2 pg (28.0-32.0) Mean Corpuscular Hemoglobin Concent 34.5 g/dL (32.0-36.0) Red Cell Distribution Width 13.2 % (11.8-14.3) Platelet Count 253 10^3/uL (140-450) Mean Platelet Volume 8.7 fL (6.9-10.8) Neutrophils (%) (Auto) 84.4 % (37.0-80.0) Lymphocytes (%) (Auto) 9.6 % (10.0-50.0) Monocytes (%) (Auto) 5.5 % (0.0-12.0) Eosinophils (%) (Auto) 0.1 % (0.0-7.0) Basophils (%) (Auto) 0.4 % (0.0-2.0) Neutrophils # (Auto) 10.6 10 ^3/uL (1.6-8.6) Lymphocytes # (Auto) 1.2 10 ^3/uL (0.4-5.4) Monocytes # (Auto) 0.7 10 ^3/uL (0-1.3) Eosinophils # (Auto) 0 10 ^3/uL (0-0.8) Basophils # (Auto) 0 10 ^3/uL (0-0.2) Nucleated Red Blood Cells 0.1 % Sodium Level 144 mmol/L (136-145) Potassium Level 3.9 mmol/L (3.5-5.1) Chloride Level 106 mmol/L (98-107) Carbon Dioxide Level 28 mmol/L (20-31) Anion Gap 10 (5-15) Blood Urea Nitrogen 17 mg/dL (9-23) Creatinine 0.79 mg/dL (0.550-1.02) Glomerular Filtration Rate Calc 77 mL/min (>90) BUN/Creatinine Ratio 21.5 (10.0-20.0) Serum Glucose 168 mg/dL (74-106) Calcium Level 9.6 mg/dL (8.7-10.4) Total Bilirubin 1.5 mg/dL (0.2-1.0) Aspartate Amino Transferase (AST) 14 U/L (13-40) Alanine Aminotransferase (ALT) 20 U/L (7-40) Alkaline Phosphatase 55 U/L (46-116) Total Protein 7.4 g/dL (5.7-8.2) Albumin 4.6 g/dL (3.2-4.8) Urine Color Colorless (Yellow) Urine Clarity Clear (Clear) Urine pH 5.0 (5.0-9.0) Urine Specific [place] 1.011 (1.001-1.035) Urine Protein Negative (Negative) Urine Ketones Negative (Negative) Urine Blood Negative /uL (Negative) Urine Nitrite Negative (Negative) Urine Bilirubin Negative (Negative) Urine Urobilinogen Normal mg/dL (Negative) Urine Leukocyte Esterase Negative /uL (Negative) Urine RBC <1 /hpf (0 - 4) Urine Microscopic WBC < 1 /HPF (0-5) Urine Squamous Epithelial Cells None seen /hpf (<5) Urine Bacteria None seen /hpf (None Seen) Urine Glucose 4+ mg/dL (Normal) SARS-CoV-2 Antigen (Rapid) Negative (NEGATIVE) Troponin I High Sensitivity 9 ng/L (</=34) Test 06/30/25 03:30 B-Type Natriuretic Peptide 163.34 pg/mL (0-100) Other Laboratory Tests 07/01/25 06:53 Brief Hx & Hospital Course: The patient is a 74-year-old female with past medical history of sleep apnea, anxiety, AFib, diabetes mellitus, hyperlipidemia, and hypertension who presented to [facility] ED with complaint of shortness of breaths. Patient reports she has been experiencing shortness of breaths associated with substernal chest pain, pressure-like in nature, nonradiating, progressively getting worse. Patient was seen and evaluated in the ED, laboratory data shows WBC 13.0, platelets 256, sodium 141, potassium 4.1, BUN nine, creatinine 0.69, GFR 90, glucose 154, calcium 9.0, BNP 163.34, troponin 11, blood pressure 112/49, heart rate 74, temperature 99.0 F, O2 saturation 94% on oxygen. Chest x-ray revealing diffuse interstitial opacities and suspected small left pleural effusion, likely representing heart failure less likely atypical infection. Patient was started on IV Lasix, please see medication orders section in the computer. On my assessment, patient denied chest pain at this moment, no headache, no dizziness, no diaphoresis, currently on oxygen, no nausea, no vomiting, no fever, no chills. Patient was admitted for further evaluation medical management. She is admitted to the hospital and treated for her heart failure exacerbation. Patient's CT angiogram negative for PE. Echocardiogram showed a normal ejection fraction with a possible diastolic dysfunction. Patient counseled educated regarding compliance with the her Lasix at home. Underwent CHF education and fluid restriction as well. Otherwise overall patient is clinically stable feeling better back to baseline normal status. Therefore she has been discharged home in stable condition. I have talked with the patient regarding her hospital diagnosis, 2D echocardiogram as well as CT angiogram results, discharge medications including side effects, discharge instructions and follow- up plan of care. She has verbalized understanding of these and agree with the care plan as outlined Consults/Reason for consult CT ANGIOGRAM CHEST WITH CONTRAST FOR PULMONARY EMBOLUS CLINICAL HISTORY: resp. distress TECHNIQUE: Helical axial scans of the chest during dynamic intravenous contrast injection. Pulmonary embolism protocol. Multiplanar reformats. Postprocessing MIP images. One or more of the following radiation dose reduction techniques were used for this examination: automated exposure control, adjustment of the mA and/or kV according to patient size, use of iterative reconstruction technique. COMPARISON: Chest x-ray 06/30/2025 FINDINGS: Pulmonary arteries: There is adequate enhancement of the pulmonary arterial system to the proximal segmental level, however, respiratory motion artifact limits evaluation distally. As visualized no definite central or lobar branch filling defects are identified. Mediastinum: The heart is mildly enlarged. No pericardial effusion. No mediastinal adenopathy. Aortic atherosclerotic calcifications. Lung parenchyma: Scattered atelectasis/ scarring in the lingula and lower lobes. Mild diffuse interlobular septal thickening. Pleura: Small right and trace left pleural effusions. No sizable pneumothorax. Chest wall and axillae: No axillary adenopathy noted. Upper abdomen: Cholelithiasis partially imaged. IMPRESSION: No definite evidence of pulmonary embolism through the lobar branches. Congestive type pattern with interstitial edema. Small right and trace left pleural effusions. Cholelithiasis partially imaged. HS:Y Operations or Procedures APPROVED REPORT EXAM: Two-dimensional and M-mode echocardiogram with Doppler and color Doppler. Blood Pressure: 118/56 mmHg INDICATION Heart Failure RISK FACTORS Height: 5'2", Weight: 200 DIMENSIONS LVDd 4.8 (3.8-5.7cm) LA (2D) 3.9 (1.9-4.0cm) Aortic Root 3.1 (2.0- 3.7cm) LVDs 2.9 (2.5-4.0cm) LA (MM) (1.9-4.0cm) Aortic Cusp Exc 1.7 (1.5- 2.0cm) EF (%) 69.0 (55-70%) Rt. Atrium 3.5 (1.9-4.0cm) Asc. Aorta 3.1 cm IVSd 1.2 (0.7-1.1cm) RV (D) 3.6 (1.8-2.4cm) PWd 0.9 (0.7-1.1cm) Mitral Valve Mitral Mitral Stenosis E wave 1.13m/s MV Mean GR. mmHg A wave 0.57m/s MV Peak GR. mmHg E/A ratio 2.0 2D MVA cm2 DECEL Time 180ms PRESS 1/2 Time ms Aortic Valve Aortic Valve Aortic Stenosis V1 1.05m/s AO Mean GR. 3mmHg V2 1.17m/s AO Peak GR. 5mmHg LVOT Diameter 2.1 (1.8-2.4cm) Doppler TERI 3.11cm2 Pulmonic Valve V2 1.06m/s Tricuspid Valve TR Velocity 2.87m/s RVSP 41mmHg Other Information Quality : Technically Limited Rhythm : Technically limited study due to body habitus. Conclusion lvef 60% normal RV Function biatrial enlargement mild to moderate mitral regurg mild to moderate tricuspid regurg SIGNED BY: DILSHAD MONZON MD SIGNED DATE/TIME: 07/01/25 1216 Condition at Discharge: Stable Final Diagnosis/Problems List 1. Acute hypoxic respiratory failure secondary to acute CHF exacerbation 2. Acute CHF was then admission rule or systolic/diastolic dysfunction 3. Community-acquired pneumonia next 4. Diabetes mellitus type 2 next 5. Hypertension 6. Chronic AFib currently in normal sinus rhythm Discharge Disposition: Home Discharge Instruct/Medications Diet: Consistent carbohydrate, Cardiac 2g Na,low cholest Activity: No Restrictions, As Tolerated Follow Up/Referral: Primary care physician next week and filter changer after two weeks for leg swelling and further management Medications: As prescribed and home medications per discharge med list Scheduled Atorvastatin Calcium (Atorvastatin Calcium), 1 TAB PO DAILY, (Reported) Empagliflozin (Jardiance), 25 MG PO DAILY, (Reported) Furosemide (Furosemide), 1 TAB PO DAILY Gemfibrozil (Gemfibrozil), 600 MG PO BID, (Reported) Glipizide (Glipizide), 5 MG PO BID, (Reported) Metformin Hydrochloride (Metformin Hcl), 1,000 MG PO IBID, (Reported) Mirabegron Base (Myrbetriq), 25 MG OR DAILY, (Reported) Multiple Vitamin (Multi-Day Vitamins), 1 TAB PO DAILY, (Reported) [place]-3 Fatty Acids ([place]-3), 1,000 MG OR DAILY, (Reported) Potassium Chloride (Klor-Con 8), 8 MEQ PO DAILY Rivaroxaban (Xarelto), 15 MG PO DAILY, (Reported) Miscellaneous Medications Cholecalciferol (Vitamelts Vitamin D), 1,000 UNIT PO, (Reported) Metoprolol Tartrate (Metoprolol Tartrate), 50 MG PO, (Reported) Discontinued Medications Allium Sativan Extract (Garlic), 1,000 MG PO, (Reported) Aspirin (Asa), 81 MG PO DAILY, (Reported) Azithromycin (Azithromycin), 250 MG PO DAILY, (Reported) Calcium Acetate (Phosphate Bin (Calcium Acetate), 600 MG PO DAILY, (Reported) Furosemide (Furosemide), 20 MG PO DAILY, (Reported) Garlic (Garlic), 1,000 MG OR DAILY, (Reported) Glipizide (Glipizide), 20 MG PO BID, (Reported) Tocopheryl Acetate, Dl-Alpha (E-400), 400 UNIT PO DAILY, (Reported) Discharge Statement: "Patient was advised to return to the ER or call 911 if any headaches, dizziness, shortness of breath, chest pain, abdominal pain, bleeding, fevers, or worsening of medical condition. Patient was counseled about treatment plan, medications, possible side effects, patientverbalized understanding. All questions were answered to the best of my ability. This discharge took greater then 30 minutes in planning, reviewing documentation, counseling the patient, and discussing with other team members." ASSESSMENT ASSESSMENT Assessment 1. Acute hypoxic respiratory failure secondary to acute CHF exacerbation 2. Acute CHF was then admission rule or systolic/diastolic dysfunction 3. Community-acquired pneumonia next 4. Diabetes mellitus type 2 next 5. Hypertension 6. Chronic AFib currently in normal sinus rhythm QIANA CONTEH MD Jul 01, 2025 14:59
[2025-07-01] MEDS: FUROSEMIDE 40 MG/4 ML VIAL IV SCH (18:47)
[2025-07-01] MEDS: ALBUTEROL SULF 2.5 MG/0.5ML(0.5%) NEB SOLN NEB SCH (19:21)
[2025-07-01] MEDS: IPRATROPIUM BROM 0.5 MG/2.5ML INH SOL NEB SCH (19:21)
--- NOTE | 2025-07-01 21:50 | DVHINCON2 ---
Date of service: Jun 30, 2025 Referring Physician YAZ Phillip Reason for Consultation Acute hypoxic respiratory failure, COPD exacerbation and pneumonia History of Present Illness A 74-year-old woman with past medical history of AFib, diabetes, hyperlipidemia, hypertension, JHON and anxiety who presents to ED today with complaint of shortness of breath. Patient reports she has been experiencing shortness of breath a/w substernal chest pain, pressure-like in nature, nonradiating, progressively getting worse. Patient was seen and evaluated in the ED. Laboratory data shows WBC 13.0, platelets 256, sodium 141, potassium 4.1, BUN nine, creatinine 0.69, GFR 90, glucose 154, calcium 9.0, BNP 163.34, troponin 11. Initial vitals showed BP of 112/49, heart rate 74, temperature 99.0 F, O2 saturation 94% on O2. Chest x-ray revealing diffuse interstitial opacities and suspected small left pleural effusion, likely representing heart failure less likely atypical infection. Patient was admitted for further care. Pulmonary consultation is requested for evaluation and management of acute hypoxic respiratory failure, COPD exacerbation and pneumonia. Review of Systems: 14-point review of systems negative unless otherwise noted above. Past Medical History: Hyperlipidemia, hypertension, diabetes mellitus, AFIB, anxiety and JHON. Past Surgical History: None Medications: Reviewed. Allergies: No known drug allergies. Family History: Cardiovascular disease Diabetes mellitus Breast cancer Hypertension Social History: Nonsmoker. No alcohol or illicit drug use. Family History: Cardiovascular disease G8 MOTHER Diabetes mellitus G8 MOTHER FH: breast cancer G8 FATHER Hypertension G8 MOTHER Allergies: Coded Allergies: NO KNOWN ALLERGIES (Unverified , 02/06/17) Home Meds Active Scripts Potassium Chloride (Klor-Con 8) 8 Meq Tab, 8 MEQ PO DAILY, #90 TAB To take it daily along with your Lasix medication. Prov:QIANA CONTEH MD 07/01/25 Furosemide (Furosemide) 40 Mg Tab, 1 TAB PO DAILY, #90 TAB 3 Refills Prov:QIANA CONETH MD 07/01/25 Reported Medications Rivaroxaban (XARELTO) 15 Mg Tab, 15 MG PO DAILY, TAB 06/30/25 Cholecalciferol (Vitamelts Vitamin D) 1,000 Unit Tab, 1000 UNIT PO, TAB 06/30/25 Atorvastatin Calcium (ATORVASTATIN CALCIUM) 10 Mg Tab, 1 TAB PO DAILY, #30 TAB 5 Refills 06/30/25 Metoprolol Tartrate (Metoprolol Tartrate) 50 Mg Tab, 50 MG PO for 30 Days, MG 06/30/25 Empagliflozin (Jardiance) 25 Mg Tab, 25 MG PO DAILY, TAB 06/30/25 Glipizide (Glipizide) 5 Mg Tab, 5 MG PO BID for 30 Days, MG 06/30/25 [place]-3 Fatty Acids (OMEGA-3) 300 Mg Cap, 1000 MG OR DAILY, CAP 09/19/19 Tocopheryl Acetate, Dl-Alpha (E-400) 400 Unit Cap, 400 UNIT PO DAILY, CAP 09/19/19 Allium Sativan Extract (Garlic) 2,000 Mg Tab, 1000 MG PO, TAB 09/19/19 Garlic (GARLIC) 1,250 Mg Tab, 1000 MG OR DAILY, TAB 09/19/19 Multiple Vitamin (Multi-Day Vitamins) Vitamins Tab, 1 TAB PO DAILY, #30 TAB 09/19/19 Furosemide (Furosemide) 20 Mg Tab, 20 MG PO DAILY for 30 Days, MG 09/19/19 Mirabegron Base (MYRBETRIQ) 25 Mg Tab, 25 MG OR DAILY, TAB 09/19/19 Gemfibrozil (Gemfibrozil) 600 Mg Tab, 600 MG PO BID for 30 Days 09/19/19 Metformin Hydrochloride (Metformin Hcl) 500 Mg Tab, 1000 MG PO IBID for 30 Days, MG 09/19/19 Discontinued Reported Medications Azithromycin (Azithromycin) 250 Mg Tab, 250 MG PO DAILY for UTI for 4 Days, #4 09/19/19 Calcium Acetate (Phosphate Bin (Calcium Acetate) 667 Mg Cap, 600 MG PO DAILY for 30 Days, MG 09/19/19 Aspirin (Asa) 81 Mg Ch, 81 MG PO DAILY, TAB.CHEW 09/19/19 Glipizide (Glipizide) 10 Mg Tab, 20 MG PO BID for 30 Days, MG 09/19/19 Current Medications Current Medications Medications (Trade) Dose Ordered Sig/Nohelia Route PRN Reason Start Time Stop Time Status Last Admin Methylprednisolone Sodium Succinate (Solu Medrol) 40 mg Q8HR IV 07/01/25 06:00 06/30/25 18:56 DC Ceftriaxone Sodium 50 ml @ 100 mls/hr DAILY@09 IV 07/01/25 09:00 07/01/25 10:24 Azithromycin 250 ml @ 125 mls/hr DAILY IV 07/01/25 10:00 07/01/25 12:06 Atorvastatin Calcium (Lipitor) 20 mg HS PO 06/30/25 22:00 07/01/25 21:38 Glipizide (Glucotrol Tablet) 5 mg BID PO 07/01/25 10:00 07/01/25 21:38 Metformin HCl (Glucophage) 1,000 mg IBID PO 07/01/25 18:00 07/01/25 17:35 DC Albuterol (Ventolin Medneb) 2.5 mg Q6HWA BANNER 07/01/25 18:00 07/01/25 19:21 Ipratropium [place] (Atrovent Medneb) 0.5 mg Q6HWA BANNER 07/01/25 18:00 07/01/25 19:21 Furosemide (Lasix Injection) 40 mg BIDD IV 07/01/25 18:00 07/01/25 18:47 Vital Signs Vital Signs Date Time Temp Pulse Resp B/P (MAP) Pulse Ox O2 Delivery O2 Flow Rate FiO2 07/01/25 19:27 68 14 99 07/01/25 19:21 Nasal Cannula 2.0 07/01/25 19:21 28 07/01/25 18:47 124/63 07/01/25 17:00 98.1 98.1 Physical Exam Gen.: Patient lying in bed in no apparent distress. On supplemental oxygen. Head: Normocephalic, atraumatic. Eyes: EOMI/PERRLA. Ears: Normal hearing. Normal anatomy. Neck/trachea: Trachea midline, supple. Nose: Normal external anatomy. Mouth: Moist mucous membranes. Chest: Decreased air entry bilaterally. No wheezing or rhonchi. Cardiovascular: Positive S1, positive S2. Regular rate and rhythm. Abdomen: Positive bowel sounds in all 4 quadrants. Soft, non-tender, non- distended. : Deferred. Rectal: Deferred. Skin: Warm, dry. Intact. Extremities: 2+ radial pulses bilaterally. No lower extremity edema. Neuro: Awake, alert, oriented x3. No gross motor or sensory deficits. Cranial nerves II through XII intact. Gait not assessed. Labs/Diagnostic Data Labs Test 07/01/25 20:08 07/01/25 06:53 06/30/25 18:00 06/30/25 06:28 Range/Units POC Glucose 248 H 70-106 mg/dl White Blood Count 12.6 H 4.4-10.8 10^3/uL Red Blood Count 4.51 4.0-5.20 10^6/uL Hemoglobin 14.1 12.2-16.2 g/dL Hematocrit 40.8 36.0-46.0 % Mean Corpuscular Volume 90.5 80.0-100.0 fL Mean Corpuscular Hemoglobin 31.2 28.0-32.0 pg Mean Corpuscular Hemoglobin Concent 34.5 32.0-36.0 g/dL Red Cell Distribution Width 13.2 11.8-14.3 % Platelet Count 253 140-450 10^3/uL Mean Platelet Volume 8.7 6.9-10.8 fL Neutrophils (%) (Auto) 84.4 H 37.0-80.0 % Lymphocytes (%) (Auto) 9.6 L 10.0-50.0 % Monocytes (%) (Auto) 5.5 0.0-12.0 % Eosinophils (%) (Auto) 0.1 0.0-7.0 % Basophils (%) (Auto) 0.4 0.0-2.0 % Neutrophils # (Auto) 10.6 H 1.6-8.6 10 ^3/uL Lymphocytes # (Auto) 1.2 0.4-5.4 10 ^3/uL Monocytes # (Auto) 0.7 0-1.3 10 ^3/uL Eosinophils # (Auto) 0 0-0.8 10 ^3/uL Basophils # (Auto) 0 0-0.2 10 ^3/uL Nucleated Red Blood Cells 0.1 % Sodium Level 144 136-145 mmol/L Potassium Level 3.9 3.5-5.1 mmol/L Chloride Level 106 98-107 mmol/L Carbon Dioxide Level 28 20-31 mmol/L Anion Gap 10 5-15 Blood Urea Nitrogen 17 9-23 mg/dL Creatinine 0.79 0.550-1.02 mg/dL Glomerular Filtration Rate Calc 77 >90 mL/min BUN/Creatinine Ratio 21.5 H 10.0-20.0 Serum Glucose 168 H 74-106 mg/dL Calcium Level 9.6 8.7-10.4 mg/dL Total Bilirubin 1.5 H 0.2-1.0 mg/dL Aspartate Amino Transferase (AST) 14 13-40 U/L Alanine Aminotransferase (ALT) 20 7-40 U/L Alkaline Phosphatase 55 46-116 U/L Total Protein 7.4 5.7-8.2 g/dL Albumin 4.6 3.2-4.8 g/dL Urine Color Colorless Yellow Urine Clarity Clear Clear Urine pH 5.0 5.0-9.0 Urine Specific [place] 1.011 1.001-1.035 Urine Protein Negative Negative Urine Ketones Negative Negative Urine Blood Negative Negative /uL Urine Nitrite Negative Negative Urine Bilirubin Negative Negative Urine Urobilinogen Normal Negative mg/dL Urine Leukocyte Esterase Negative Negative /uL Urine RBC <1 0 - 4 /hpf Urine Microscopic WBC < 1 0-5 /HPF Urine Squamous Epithelial Cells None seen <5 /hpf Urine Bacteria None seen None Seen /hpf Urine Glucose 4+ H Normal mg/dL SARS-CoV-2 Antigen (Rapid) Negative NEGATIVE Troponin I High Sensitivity 9 </=34 ng/L Test 06/30/25 03:30 Range/Units B-Type Natriuretic Peptide 163.34 0-100 pg/mL Assessment Impression: Acute hypoxic respiratory failure Acute COPD exacerbation Pneumonia Obstructive sleep apnea Plan: Supplemental oxygen Titrate to keep O2 sats above 92%. CXR reviewed, demonstrates diffuse interstitial opacities and suspected small left pleural effusion, likely representing heart failure or less likely atypical infection. Bronchodilators Antibiotics Incentive spirometry Follow up echocardiogram Follow up Cardiology recommendations Diurese to euvolemia Monitor renal function. Monitor electrolytes. Supplement as necessary. Monitor ins and outs. DVT prophylaxis. Prognosis: Poor given patient's multiple co-morbidities. Rest of plan per hospitalist and other consultants. Thank you, YAZ Phillip, for allowing me to participate in this patient's care. Further recommendations will depend on the patient's clinical course. Please do not hesitate to contact me if you have any questions or concerns. This medical document was created using an electronic medical record system with [employer] system. Although these documentations are being carefully reviewed, there may still be some phonetic and typographical changes. The errors are purely typographical, due to imperfection on the software program, and do not reflect any compromise in the patient's medical care. Plan discussed with: Patient, Other (RN/YAZ Phillip/) XOCHITL PATEL MD Jul 01, 2025 21:50
--- NOTE | 2025-07-01 21:56 | DVHPN2 ---
Progress Note - Dictate Date Seen: Jul 01, 2025 Medical Necessity Reason Pt with a Central, PICC or Fol: No Subjective Patient seen and examined at bedside. Breathing comfortably on room air. Overnight events reviewed. vital signs Vital Sign Date Time Temp Pulse Resp B/P (MAP) Pulse Ox O2 Delivery O2 Flow Rate FiO2 07/01/25 19:27 68 14 99 07/01/25 19:21 Nasal Cannula 2.0 07/01/25 19:21 28 07/01/25 18:47 124/63 07/01/25 17:00 98.1 98.1 Total Intake and Output 06/30/25 06/30/25 07/01/25 15:00 23:00 07:00 Intake Total 450 ml Balance 450 ml medications Current Medications Medications Dose Ordered Sig/Nohelia Route Start Time Stop Time Status Last Admin Dose Admin Ceftriaxone Sodium 50 ml @ 100 mls/hr DAILY@09 IV 07/01/25 09:00 07/01/25 10:24 100 MLS/HR Azithromycin 250 ml @ 125 mls/hr DAILY IV 07/01/25 10:00 07/01/25 12:06 125 MLS/HR Atorvastatin Calcium 20 mg HS PO 06/30/25 22:00 07/01/25 21:38 20 MG Aspirin 81 mg DAILY PO 06/30/25 10:00 07/01/25 10:23 81 MG Diagnostic Test (Pha) 1 strip IQ4HR 06/30/25 08:00 07/01/25 20:24 1 STRIP Insulin Human Regular IQ4HR SC 06/30/25 08:00 07/01/25 20:24 4 UNITS Dextrose 50 ml UD PRN IV 06/30/25 06:30 Sodium Chloride 10 ml Q8HR IV 06/30/25 14:00 07/01/25 21:39 10 ML Acetaminophen/ Hydrocodone Bitart 1 tab Q4HP PRN PO 06/30/25 06:30 Ondansetron HCl 4 mg Q4HP PRN IV 06/30/25 06:30 Docusate Sodium 100 mg BIDPRN PRN PO 06/30/25 06:30 Acetaminophen 650 mg Q6HP PRN PO 06/30/25 06:30 Nitroglycerin 0.4 mg Q5MINP PRN SL 06/30/25 06:30 Morphine Sulfate 2 mg Q30M PRN IV 06/30/25 06:30 Rivaroxaban 15 mg DAILY@DINNER PO 06/30/25 19:30 07/01/25 18:47 15 MG Glipizide 5 mg BID PO 07/01/25 10:00 07/01/25 21:38 5 MG Albuterol 2.5 mg Q6HWA NEB 07/01/25 18:00 07/01/25 19:21 2.5 MG Ipratropium [place] 0.5 mg Q6HWA NEB 07/01/25 18:00 07/01/25 19:21 0.5 MG Furosemide 40 mg BIDD IV 07/01/25 18:00 07/01/25 18:47 40 MG objective Gen.: Patient lying in bed in no apparent distress. On room air Head: Normocephalic, atraumatic. Eyes: EOMI/PERRLA. Ears: Normal hearing. Normal anatomy. Neck/trachea: Trachea midline, supple. Nose: Normal external anatomy. Mouth: Moist mucous membranes. Chest: Decreased air entry bilaterally. No wheezing or rhonchi. Cardiovascular: Positive S1, positive S2. Regular rate and rhythm. Abdomen: Positive bowel sounds in all 4 quadrants. Soft, non-tender, non- distended. : Deferred. Rectal: Deferred. Skin: Warm, dry. Intact. Extremities: 2+ radial pulses bilaterally. No lower extremity edema. Neuro: Awake, alert, oriented x3. No gross motor or sensory deficits. Cranial nerves II through XII intact. Gait not assessed. laboratory and microbiology Laboratory Tests 07/01/25 06:53 Test 07/01/25 06:53 Range/Units Serum Glucose 168 H 74-106 mg/dL Assessment/Plan Impression: Acute hypoxic respiratory failure Acute COPD exacerbation Pneumonia Obstructive sleep apnea Events: Breathing on room air Supplemental oxygen PRN CTA done today negative for PE. Congestive type pattern with interstitial edema. Small right and trace left pleural effusions. Continue bronchodilators Continue antibiotics Incentive spirometry Reviewed Echo - RVSP 41 mmHg, LVEF of 60%. Mild to moderate mitral regurgitation; mild to moderate tricuspid regurgitation. Cardiology recommendations appreciated. Continue diuresis with Lasix Monitor renal function Labs and imaging reviewed. Rest of plan as noted below. Plan: Supplemental oxygen PRN Titrate to keep O2 sats above 92%. CXR on 06/30/25 revealed diffuse interstitial opacities and suspected small left pleural effusion, likely representing heart failure or less likely atypical infection. Bronchodilators Antibiotics Incentive spirometry Diurese to euvolemia Monitor renal function. Monitor electrolytes. Supplement as necessary. Monitor ins and outs. DVT prophylaxis. Prognosis: Poor given patient's multiple co-morbidities. Rest of plan per hospitalist and other consultants. Thank you, YAZ Phillip, for allowing me to participate in this patient's care. Further recommendations will depend on the patient's clinical course. Please do not hesitate to contact me if you have any questions or concerns. This medical document was created using an electronic medical record system with [employer] dictation system. Although these documentations are being carefully reviewed, there may still be some phonetic and typographical changes. The errors are purely typographical, due to imperfection on the software program, and do not reflect any compromise in the patient's medical care. Plan discussed with: Patient, Other (YARIEL Jose) XOCHITL PATEL MD Jul 01, 2025 21:56
--- NOTE | 2025-07-01 22:04 | DVHPN2 ---
Subjective Patient admitted here with shortness for breath. She says she feels short of breath with exertion. However oxygenation is above 92% with activity. Changes from previous H/P or p: No Changes Eyes: No Pain, No Vision change, No Conjunctivae inflammation, No Eyelid inflammation, No Other, No Redness ENT: No Ear pain, No Ear discharge, No Nose pain, No Nose discharge, No Nose congestion, No Mouth pain, No Mouth swelling, No Throat pain, No Throat swelling, No Other Cardiovascular: Chest Pain; No Palpitations, No Orthopnea, No Paroxysmal Noc. Dyspnea, No Edema, No Lt Headedness, No Other Respiratory: No Cough, No Dry; Shortness of breath; No SOB with excertion, No Wheezing, No Hemoptysis, No Pleuritic Pain, No Sputum; Other (SOB at rest) Gastrointestinal: No Nausea, No Vomiting, No Abdominal Pain, No Diarrhea, No Constipation, No Melena, No Hematochezia, No Other Genitourinary: No Dysuria, No Frequency, No Incontinence, No Hematuria, No Retention, No Other Musculoskeletal: No other, No neck pain, No shoulder pain, No arm pain, No back pain, No hand pain, No leg pain, No foot pain Skin: No Rash, No Lesions, No Jaundice, No Bruising, No Other Objective Vitals Vital Signs Date Time Temp Pulse Resp B/P (MAP) Pulse Ox O2 Delivery O2 Flow Rate FiO2 07/01/25 21:00 98.1 66 17 108/57 (74) 96 98.1 07/01/25 19:21 Nasal Cannula 2.0 07/01/25 19:21 28 Intake/Output Intake and Output 07/01/25 07:00 Intake Total 450 ml Balance 450 ml Intake Oral 450 ml # Voids 1 Exam Alert awake oriented x3. Family is at bedside. Heart regular rate and rhythm S1-S2. Lungs fair air movement without any audible wheezing. Abdomen obese soft positive bowel sounds. Extremities no edema. Medications Current Medications Medications Dose Ordered Sig/Nohelia Route Start Time Stop Time Status Last Admin Dose Admin Ceftriaxone Sodium 50 ml @ 100 mls/hr DAILY@09 IV 07/01/25 09:00 07/01/25 10:24 100 MLS/HR Azithromycin 250 ml @ 125 mls/hr DAILY IV 07/01/25 10:00 07/01/25 12:06 125 MLS/HR Atorvastatin Calcium 20 mg HS PO 06/30/25 22:00 07/01/25 21:38 20 MG Aspirin 81 mg DAILY PO 06/30/25 10:00 07/01/25 10:23 81 MG Diagnostic Test (Pha) 1 strip IQ4HR 06/30/25 08:00 07/01/25 20:24 1 STRIP Insulin Human Regular IQ4HR SC 06/30/25 08:00 07/01/25 20:24 4 UNITS Dextrose 50 ml UD PRN IV 06/30/25 06:30 Sodium Chloride 10 ml Q8HR IV 06/30/25 14:00 07/01/25 21:39 10 ML Acetaminophen/ Hydrocodone Bitart 1 tab Q4HP PRN PO 06/30/25 06:30 Ondansetron HCl 4 mg Q4HP PRN IV 06/30/25 06:30 Docusate Sodium 100 mg BIDPRN PRN PO 06/30/25 06:30 Acetaminophen 650 mg Q6HP PRN PO 06/30/25 06:30 Nitroglycerin 0.4 mg Q5MINP PRN SL 06/30/25 06:30 Morphine Sulfate 2 mg Q30M PRN IV 06/30/25 06:30 Rivaroxaban 15 mg DAILY@DINNER PO 06/30/25 19:30 07/01/25 18:47 15 MG Glipizide 5 mg BID PO 07/01/25 10:00 07/01/25 21:38 5 MG Albuterol 2.5 mg Q6HWA NEB 07/01/25 18:00 07/01/25 19:21 2.5 MG Ipratropium [place] 0.5 mg Q6HWA NEB 07/01/25 18:00 07/01/25 19:21 0.5 MG Furosemide 40 mg BIDD IV 07/01/25 18:00 07/01/25 18:47 40 MG Laboratory Results Laboratory Tests 07/01/25 06:53 Chemistry Test 07/01/25 06:53 Albumin 4.6 g/dL (3.2-4.8) Calcium Level 9.6 mg/dL (8.7-10.4) Total Protein 7.4 g/dL (5.7-8.2) LFT Test 07/01/25 06:53 Alanine Aminotransferase (ALT) 20 U/L (7-40) Alkaline Phosphatase 55 U/L (46-116) Aspartate Amino Transferase (AST) 14 U/L (13-40) Total Bilirubin 1.5 mg/dL (0.2-1.0) H Urinalysis Test 06/30/25 18:00 Urine Color Colorless (Yellow) Urine Clarity Clear (Clear) Urine pH 5.0 (5.0-9.0) Urine Specific [place] 1.011 (1.001-1.035) Urine Protein Negative (Negative) Urine Ketones Negative (Negative) Urine Blood Negative /uL (Negative) Urine Nitrite Negative (Negative) Urine Bilirubin Negative (Negative) Urine Urobilinogen Normal mg/dL (Negative) Urine Leukocyte Esterase Negative /uL (Negative) Urine RBC <1 /hpf (0 - 4) Urine Microscopic WBC < 1 /HPF (0-5) Urine Squamous Epithelial Cells None seen /hpf (<5) Urine Bacteria None seen /hpf (None Seen) Urine Glucose 4+ mg/dL (Normal) H Assessment/Plan Assessment/Plan Acute on chronic hypoxemic respiratory failure Acute on chronic congestive heart failure Morbid obesity with possible hypoventilation syndrome Metabolic syndrome with obesity/diabetes/hyperlipidemia Given her complaints we will get a CT angiogram of the chest to rule out PE. If workup is negative she can be discharged home in the morning. Meantime we will increase her Lasix to twice a day. Discussed with the patient and family. Plan discussed with: Patient, Spouse My Orders Orders - QIANA CONTEH MD Procedure Category Date Status Time Pt Request For Service PT 07/01/25 Logged 08:37 Glipizide Tablet PHA 07/01/25 In Process (Glucotrol Tablet) 10:00 Albuterol Medneb PHA 07/01/25 In Process (Ventolin Medneb) 18:00 Ipratropium Medneb PHA 07/01/25 In Process (Atrovent Medneb) 18:[address] 07/01/25 Logged Contrast 17:33 Furosemide Injection PHA 07/01/25 In Process (Lasix Injection) 18:00 Discharge DISCHARGE 07/01/25 Transmitted 17:35 Communication Order ORDERS 07/01/25 Transmitted 17:35 Date of Service: Jul 01, 2025 Billing Provider: QIANA CONTEH MD Common Visit Codes: [id number] INP/OBS CARE(MOD) QIANA CONTEH MD Jul 01, 2025 22:04
[2025-07-02] VITALS (9 sets, daily range): BP systolic 111–131; BP diastolic 54–66; PULSE 40–73; RESP 14–20; TEMP 97.6–98.6; O2SAT 95–100
[2025-07-02] MEDS ORDERED: IOHEXOL 350 MG/ML 100ML IJ ONE (00:15)
--- NOTE | 2025-07-02 01:15 | DVH ---
CT ANGIOGRAM CHEST WITH CONTRAST FOR PULMONARY EMBOLUS CLINICAL HISTORY: resp. distress TECHNIQUE: Helical axial scans of the chest during dynamic intravenous contrast injection. Pulmonary embolism protocol. Multiplanar reformats. Postprocessing MIP images. One or more of the following rad iation dose reduction techniques were used for this examination: automated exposure control, adjustme nt of the mA and/or kV according to patient size, use of iterative reconstruction technique. COMPARISON: Chest x-ray 06/30/2025 FINDINGS: Pulmonary arteries: There is adequate enhancement of the pulmonary arterial system to the proximal se gmental level, however, respiratory motion artifact limits evaluation distally. As visualized no defi nite central or lobar branch filling defects are identified. Mediastinum: The heart is mildly enlarged. No pericardial effusion. No mediastinal adenopathy. Aortic atherosclerotic calcifications. Lung parenchyma: Scattered atelectasis/ scarring in the lingula and lower lobes. Mild diffuse interlo bular septal thickening. Pleura: Small right and trace left pleural effusions. No sizable pneumothorax. Chest wall and axillae: No axillary adenopathy noted. Upper abdomen: Cholelithiasis partially imaged. IMPRESSION: No definite evidence of pulmonary embolism through the lobar branches. Congestive type pattern with interstitial edema. Small right and trace left pleural effusions. Cholelithiasis partially imaged. HS:Y
[2025-07-02 07:21] LABS: Anion Gap 9 (5-15); Calcium 9.2 mg/dL (8.7-10.4); Carbon Dioxide 31 mmol/L (20-31); Chloride 102 mmol/L (98-107); Sodium 142 mmol/L (136-145)
[2025-07-02 07:27] LABS: BUN/Creatinine Ratio 20.5 (10.0-20.0); Blood Urea Nitrogen 17 mg/dL (9-23)
[2025-07-02 07:31] LABS: Glucose 118 mg/dL (74-106); Potassium 3.2 mmol/L (3.5-5.1)
--- NOTE | 2025-07-02 19:11 | DVHPN2 ---
Progress Note - Dictate Date Seen: Jul 02, 2025 Medical Necessity Reason Pt with a Central, PICC or Fol: No Subjective Patient seen and examined at bedside. Breathing comfortably on room air. Overnight events reviewed. vital signs Vital Sign Date Time Temp Pulse Resp B/P (MAP) Pulse Ox O2 Delivery O2 Flow Rate FiO2 07/02/25 10:32 98.6 62 20 07/02/25 09:00 131/54 (79) 95 07/02/25 08:00 Room Air* 0 21 Total Intake and Output 07/01/25 07/01/25 07/02/25 15:00 23:00 07:00 Intake Total 300 ml 950 ml 700 ml Balance 300 ml 950 ml 700 ml objective Gen.: Patient lying in bed in no apparent distress. On room air Head: Normocephalic, atraumatic. Eyes: EOMI/PERRLA. Ears: Normal hearing. Normal anatomy. Neck/trachea: Trachea midline, supple. Nose: Normal external anatomy. Mouth: Moist mucous membranes. Chest: Decreased air entry bilaterally. No wheezing or rhonchi. Cardiovascular: Positive S1, positive S2. Regular rate and rhythm. Abdomen: Positive bowel sounds in all 4 quadrants. Soft, non-tender, non- distended. : Deferred. Rectal: Deferred. Skin: Warm, dry. Intact. Extremities: 2+ radial pulses bilaterally. No lower extremity edema. Neuro: Awake, alert, oriented x3. No gross motor or sensory deficits. Cranial nerves II through XII intact. Gait not assessed. laboratory and microbiology Laboratory Tests 07/02/25 06:44 07/01/25 06:53 Test 07/02/25 06:44 Range/Units Serum Glucose 118 H 74-106 mg/dL Assessment/Plan Impression: Acute hypoxic respiratory failure Acute COPD exacerbation Pneumonia Obstructive sleep apnea Events: Breathing on room air Supplemental oxygen PRN Continue bronchodilators Complete antibiotic course Incentive spirometry Reviewed Echo - RVSP 41 mmHg, LVEF of 60%. Mild to moderate mitral regurgitation; mild to moderate tricuspid regurgitation. Cardiology recommendations appreciated. Continue diuresis with Lasix Monitor renal function Patient is stable for discharge from the pulmonary standpoint. CTA negative for PE. Congestive type pattern with interstitial edema. Small right and trace left pleural effusions. CXR on 06/30/25 revealed diffuse interstitial opacities and suspected small left pleural effusion, likely representing heart failure or less likely atypical infection. Labs and imaging reviewed. Rest of plan as noted below. Plan: Supplemental oxygen PRN Titrate to keep O2 sats above 92%. Bronchodilators Antibiotics Incentive spirometry Diurese to euvolemia Monitor renal function. Monitor electrolytes. Supplement as necessary. Monitor ins and outs. DVT prophylaxis. Prognosis: Poor given patient's multiple co-morbidities. Rest of plan per hospitalist and other consultants. Thank you, YAZ Phillip, for allowing me to participate in this patient's care. Further recommendations will depend on the patient's clinical course. Please do not hesitate to contact me if you have any questions or concerns. This medical document was created using an electronic medical record system with [employer] computerized dictation system. Although these documentations are being carefully reviewed, there may still be some phonetic and typographical changes. The errors are purely typographical, due to imperfection on the software program, and do not reflect any compromise in the patient's medical care. Plan discussed with: Patient, Other (YARIEL Sheth) XOCHITL PATEL MD Jul 02, 2025 19:11
== END 2025-07-02 11:15 | disposition home or self-care (01) | DRG 177 ==
LOC: ER 03:15 → EDBD 03:15 → OVERFLOW 06:23 → TELE-CENTR 22:06
PROVIDERS: ADMIT Student in an Organized Health Care Education/Training Program; ATTEND Student in an Organized Health Care Education/Training Program
DX: J15.69 Pneumonia due to other Gram-negative bacteria (principal); I50.43 Acute on chronic combined systolic (congestive) and diastolic (congestive) heart failure; J96.21 Acute and chronic respiratory failure with hypoxia; I48.20 Chronic atrial fibrillation, unspecified; J44.1 Chronic obstructive pulmonary disease with (acute) exacerbation; J44.0 Chronic obstructive pulmonary disease with (acute) lower respiratory infection; I11.0 Hypertensive heart disease with heart failure; J15.9 Unspecified bacterial pneumonia; Z20.822 Contact with and (suspected) exposure to COVID-19; E11.9 Type 2 diabetes mellitus without complications; E78.1 Pure hyperglyceridemia; E66.01 Morbid (severe) obesity due to excess calories; G47.33 Obstructive sleep apnea (adult) (pediatric); I08.1 Rheumatic disorders of both mitral and tricuspid valves; F41.9 Anxiety disorder, unspecified; Z79.2 Long term (current) use of antibiotics; Z79.899 Other long term (current) drug therapy; Z79.84 Long term (current) use of oral hypoglycemic drugs; Z83.3 Family history of diabetes mellitus; Z82.49 Family history of ischemic heart disease and other diseases of the circulatory system; Z80.3 Family history of malignant neoplasm of breast; Z68.36 Body mass index [BMI] 36.0-36.9, adult
CPT/HCPCS: 36415; 71045; 71275; 80048; 80053; 81001; 82962; 83880; 84484; 85025; 87426; 93005; 93306; 94640; 96374; 96375; 97163; 99291; G0378; J1815; J3490